=== PATIENT | female | born 1940 | race Caucasian/White ===

== ENCOUNTER 2020-02-11 09:16 | Outpatient (REF) | payer MEDICARE, SELFPAY ==
[2020-02-11 10:42] LABS: Hematocrit 34.9 % (37-47); Hemoglobin 9.5 g/dl (12.0-16.0)
[2020-02-11 12:14] LABS: Ferritin < 1 ng/mL (10-250)
[2020-02-11 18:45] LABS: Iron 19 mcg/dL (30-160); Percent Iron Saturation 4 % (15-50); Total Iron Binding Capacity 454 mcg/dL (228-428); Unsaturated Iron Binding 435 ug/dL
== END 2020-02-11 09:17 | disposition home or self-care (01) ==
LOC: HO.WFDLDS 09:16
PROVIDERS: PCP Family Medicine; Visit Provider Family Medicine
DX: D50.9 Iron deficiency anemia, unspecified (principal)
CPT/HCPCS: 36415; 82728; 83540; 85014; 85018

== ENCOUNTER 2020-05-31 08:24 | Outpatient (REF) | payer MEDICARE, SELFPAY ==
[2020-05-31 10:44] LABS: MANUAL DIFF FLAG NO
[2020-05-31 10:47] LABS: Basophils Absolute Auto 0.1 X10*3/uL (0.0-0.2); Basophils Percent Auto 1.4 % (0-2); Eosinophils Absolute Auto 0.1 X10*3/uL (0.0-0.4); Eosinophils Percent Auto 2.3 % (0-4); Hematocrit 35.3 % (37-47); Hemoglobin 9.4 g/dl (12.0-16.0); Imm Gran Abs Auto 0.01 X10*3/uL (0.00-0.03); Imm Gran Pct Auto 0.3 % (0.0-0.4); Lymphocytes Absolute Auto 0.9 X10*3/uL (1.2-4.9); Lymphocytes Percent Auto 26.5 % (20-40); Mean Corpuscular HGB Conc 26.6 g/dl (31.0-35.0); Mean Corpuscular Hemoglobin 19.9 pg (27.0-33.0); Mean Corpuscular Volume 74.6 fL (80-98); Mean Platelet Volume 10.4 fL (9.4-12.3); Monocytes Absolute Auto 0.5 X10*3/uL (0.1-1.2); Neutrophils Percent Auto 56.5 % (45-73); Platelet Count 389 X10*3/uL (160-400); Red Blood Count 4.73 X10*6/uL (4.20-5.50); Red Cell Distribution Width 20.6 % (11.0-16.0); White Blood Count 3.6 X10*3/uL (4.8-10.8)
[2020-05-31 11:41] LABS: Alanine Aminotransferase 13 U/L (0-31); Albumin Level 4.4 g/dL (3.5-5.0); Alkaline Phosphatase 57 U/L (39-117); Anion Gap 15 (12-20); Aspartate Amino Transferase 19 U/L (5-31); Bilirubin Total 0.5 mg/dL (0.0-1.0); Blood Urea Nitrogen 11 mg/dL (9-16); Calcium 9.2 mg/dL (8.4-10.2); Carbon Dioxide 27 mmol/L (22-29); Chloride 103 mmol/L (96-108); Cholesterol 206 mg/dL; Estimated Glomerular Filt Rate > 60; Glucose Fasting 104 mg/dL (60-99); HDL Cholesterol 76 mg/dL; Iron 19 mcg/dL (30-160); LDL Cholesterol Calculated 102 mg/dl; Percent Iron Saturation 4 % (15-50); Sodium 141 mmol/L (135-145); Total Iron Binding Capacity 463 mcg/dL (228-428); Total Protein 6.8 g/dL (6.5-8.0); Triglycerides 142 mg/dL; Unsaturated Iron Binding 444 ug/dL
[2020-05-31 12:04] LABS: TSH reflex Free T4 1.32 mIU/mL (0.32-4.0)
== END 2020-05-31 08:25 | disposition home or self-care (01) ==
LOC: HO.WFDLDS 08:24
PROVIDERS: Visit Provider Family Medicine
DX: Z00.00 Encounter for general adult medical examination without abnormal findings (principal); Z86.2 Personal history of diseases of the blood and blood-forming organs and certain disorders involving the immune mechanism; E78.5 Hyperlipidemia, unspecified
CPT/HCPCS: 36415; 80053; 80061; 83540; 84443; 85025

== ENCOUNTER 2021-02-06 12:59 | Outpatient (REF) | payer MEDICARE, SELFPAY ==
--- NOTE | ~2021-02-06 | MM_ITS ---
EXAMINATION: MM SCREENING DIGITAL BREAST TOMOSYNTHESIS, BILATERAL CLINICAL INFORMATION: Screening. Asymptomatic. The lifetime risk of breast cancer based on the Tyrer-Cuzick Model is 3%. COMPARISON: Mammography: 11/03/2019, 08/05/2018, 07/11/2017 TECHNIQUE: Digital breast tomosynthesis is performed in both the craniocaudal and mediolateral oblique views along with computer-aided detection (CAD). Synthesized 2D images are generated from the tomosynthesis. FINDINGS: There are scattered areas of fibroglandular density (ACR BI-RADS breast composition Category b). There are no significant masses, abnormal calcifications, or other abnormalities. Axillary nodes are stable including low right node on MLO view. The skin contours are smooth. No significant changes. MM/MM tomosynthesis screening BI IMPRESSION: No mammographic evidence of malignancy. ASSESSMENT: BI-RADS 1: Negative RECOMMENDATION: Routine annual mammography screening. This patient's information was entered into a reminder system with a target due date for their next mammogram.
== END 2021-02-06 13:00 | disposition home or self-care (01) ==
LOC: HO.MAMMO 12:59
PROVIDERS: PCP Family Medicine; Visit Provider Family Medicine
DX: Z12.31 Encounter for screening mammogram for malignant neoplasm of breast (principal)
CPT/HCPCS: 77063; 77067

== ENCOUNTER 2021-07-12 09:06 | Outpatient (REF) | payer MEDICARE, SELFPAY ==
[2021-07-12 10:22] LABS: MANUAL DIFF FLAG NO
[2021-07-12 10:32] LABS: Basophils Percent Auto 0.6 % (0-2); Eosinophils Absolute Auto 0.1 X10*3/uL (0.0-0.4); Eosinophils Percent Auto 1.9 % (0-4); Hematocrit 40.3 % (37.0-47.0); Hemoglobin 11.5 g/dl (12.0-16.0); Imm Gran Abs Auto 0.01 X10*3/uL (0.00-0.03); Imm Gran Pct Auto 0.2 % (0.0-0.4); Mean Corpuscular HGB Conc 28.5 g/dl (31.0-35.0); Mean Corpuscular Hemoglobin 22.4 pg (27.0-33.0); Mean Corpuscular Volume 78.4 fL (80.0-98.0); Mean Platelet Volume 10.6 fL (9.4-12.3); Monocytes Absolute Auto 0.4 X10*3/uL (0.1-1.2); Monocytes Percent Auto 9.5 % (2-11); Neutrophils Percent Auto 65.8 % (45-73); Platelet Count 311 X10*3/uL (160-400); Red Blood Count 5.14 X10*6/uL (4.20-5.50); Red Cell Distribution Width 19.6 % (11.0-16.0); White Blood Count 4.6 X10*3/uL (4.8-10.8)
[2021-07-12 10:45] LABS: Alanine Aminotransferase 12 U/L (0-31); Albumin Level 4.3 g/dL (3.5-5.0); Alkaline Phosphatase 69 U/L (39-117); Anion Gap 13 (12-20); Aspartate Amino Transferase 18 U/L (5-31); Bilirubin Total 0.5 mg/dL (0.0-1.0); Blood Urea Nitrogen 16 mg/dL (9-16); Calcium 9.4 mg/dL (8.4-10.2); Carbon Dioxide 28 mmol/L (22-29); Chloride 104 mmol/L (96-108); Cholesterol 202 mg/dL; Estimated Glomerular Filt Rate > 60; Glucose Fasting 108 mg/dL (60-99); HDL Cholesterol 76 mg/dL; LDL Cholesterol Calculated 98 mg/dl; Potassium 3.4 mmol/L (3.3-5.1); Sodium 142 mmol/L (135-145); Triglycerides 141 mg/dL
[2021-07-12 11:06] LABS: TSH reflex Free T4 1.14 uIU/mL (0.32-4.0)
== END 2021-07-12 09:07 | disposition home or self-care (01) ==
LOC: HO.WFDLDS 09:06
PROVIDERS: Visit Provider Family Medicine
DX: Z00.00 Encounter for general adult medical examination without abnormal findings (principal)
CPT/HCPCS: 36415; 80053; 80061; 84443; 85025

== ENCOUNTER 2022-01-16 10:37 | Outpatient (REF) | payer MEDICARE, SELFPAY ==
--- NOTE | ~2022-01-16 | MM_ITS ---
EXAMINATION: BONE DENSITOMETRY CLINICAL INDICATION: Osteopenia. COMPARISON: Previous BD dated 01/15/2020 and baseline BD dated 08/30/2006. TECHNIQUE: Using a [employer] DXA System (software version: 13.1) manufactured by [employer], dual-energy x-ray absorptiometry was performed of the lumbar spine and left hip. The images are of good technical quality. Summary results are attached. FINDINGS: AP SPINE L1-L3 (excluding L4): The data of L1-L4 has been changed to exclude the L4 vertebral body, because degenerative changes at this level may cause overestimation of lumbar spine density. Current: BMD 1.085 g/cm2, Z-score 0.9, T-score -0.7, normal, 0.7% decrease from previous, 2.6% decrease from baseline (<5% change is not significant). Prior: BMD 1.093 g/cm2. Baseline: BMD 1.114 g/cm2. LEFT FEMUR, NECK: Current: BMD 0.589 g/cm2, Z-score -1.3, T-score -3.2, osteoporosis. Prior: BMD 0.662 g/cm2. Baseline: BMD 0.860 g/cm2. LEFT FEMUR, TOTAL: Current: BMD 0.711 g/cm2, Z-score -0.5, T-score -2.4, osteopenia, 1.5% decrease from previous, 32.1% decrease from baseline (<5% change is not significant). Prior: BMD 0.722 g/cm2. Baseline: BMD 1.047 g/cm2. IDENTIFIED RISK FACTORS: Early menopause, secondary osteoporosis, Thiazide. HISTORY OF FRACTURE: None listed. MEDICATIONS: None listed. MM/XR DEXA axial skeleton IMPRESSION: 1. DIAGNOSIS: Osteoporosis based on the lowest T-score value of -3.2 in the femoral neck applying World Health Organization criteria. 2. 10-YEAR FRACTURE RISK PREDICTION, FRAX: According to the guidelines, FRAX calculation should only be performed on patients in the osteopenia bone density category. Therefore, FRAX was not performed on this patient. 3. Treatment Recommendations: NOF guidelines recommend consideration for treatment in postmenopausal women and men age 50 and older presenting with the following: -A hip or vertebral (clinical or morphometric) fracture. -T-score less than or equal to -2.5 at the femoral neck or spine after appropriate evaluation to exclude secondary causes. -Low bone mass at the hip or spine and a 10-year fracture probability by FRAX of greater than or equal to 3% for hip fracture or greater than or equal to 20% for major osteoporotic fracture based on the [place] adapted WHO algorithm. 4. Other Recommendations: All treatment decisions require clinical judgment and consideration of individual patient factors, including patient preferences, comorbidities, previous drug use, risk factors not captured in the FRAX model (e.g. frailty, falls, vitamin D deficiency, increased bone turnover, interval significant decline in bone density) and possible under or overestimation of fracture risk by FRAX. Additional medical evaluation for secondary cause of low bone mineral density may be appropriate. FUTURE SCAN RECOMMENDATION: People with diagnosed cases of osteoporosis or at high risk for fracture should have regular bone mineral density tests. For patients eligible for Medicare, routine testing is allowed once every 2 years. The testing frequency can be increased to one year for patients who have rapidly progressing disease, those who are receiving or discontinuing medical therapy to restore bone mass, or have additional risk factors.
== END 2022-01-16 10:38 | disposition home or self-care (01) ==
LOC: HO.MAMMO 10:37
PROVIDERS: Visit Provider Family Medicine
DX: Z13.820 Encounter for screening for osteoporosis (principal); M85.88 Other specified disorders of bone density and structure, other site; Z78.0 Asymptomatic menopausal state
CPT/HCPCS: 77080

== ENCOUNTER 2022-03-15 12:39 | Outpatient (REF) | payer MEDICARE, SELFPAY ==
--- NOTE | ~2022-03-15 | MM_ITS ---
EXAMINATION: MM SCREENING DIGITAL BREAST TOMOSYNTHESIS, BILATERAL CLINICAL INFORMATION: Screening. Asymptomatic. COMPARISON: Mammography: 02/06/2021, 11/03/2019, 08/05/2018 TECHNIQUE: Digital breast tomosynthesis is performed in both the craniocaudal and mediolateral oblique views along with computer-aided detection (CAD). Synthesized 2D images are generated from the tomosynthesis. FINDINGS: There are scattered areas of fibroglandular density (ACR BI-RADS breast composition Category b). There are no significant masses, abnormal calcifications, or other abnormalities. Parenchymal pattern is similar to prior studies. There is no developing density or architectural abnormality. The axilla and skin contours are unremarkable. No significant changes. MM/MM tomosynthesis screening BI IMPRESSION: No mammographic evidence of malignancy. ASSESSMENT: BI-RADS 1: Negative RECOMMENDATION: Routine annual mammography screening. This patient's information was entered into a reminder system with a target due date for their next mammogram.
== END 2022-03-15 12:40 | disposition home or self-care (01) ==
LOC: HO.MAMMO 12:39
PROVIDERS: PCP Family Medicine; Visit Provider Family Medicine
DX: Z12.31 Encounter for screening mammogram for malignant neoplasm of breast (principal)
CPT/HCPCS: 77063; 77067

== ENCOUNTER → 2022-04-10 14:08 | Outpatient (BNVA) | payer MEDICARE, SELFPAY | PROVIDERS: PCP Family Medicine; Visit Provider Student in an Organized Health Care Education/Training Program | DX: M81.0 Age-related osteoporosis without current pathological fracture (principal); M19.041 Primary osteoarthritis, right hand; M19.042 Primary osteoarthritis, left hand | CPT/HCPCS: 99202 ==

== ENCOUNTER 2022-05-22 12:06 | Outpatient (REF) | payer MEDICARE, SELFPAY ==
[2022-05-22 14:28] LABS: Hematocrit 46.2 % (37.0-47.0); Hemoglobin 14.1 g/dl (12.0-16.0); Mean Corpuscular HGB Conc 30.5 g/dl (31.0-35.0); Mean Corpuscular Hemoglobin 28.1 pg (27.0-33.0); Mean Platelet Volume 10.4 fL (9.4-12.3); Platelet Count 276 X10*3/uL (160-400); Red Blood Count 5.02 X10*6/uL (4.20-5.50); Red Cell Distribution Width 15.9 % (11.0-16.0); White Blood Count 4.3 X10*3/uL (4.8-10.8)
[2022-05-22 15:27] LABS: Alanine Aminotransferase 15 U/L (0-31); Albumin Level 4.5 g/dL (3.5-5.0); Alkaline Phosphatase 72 U/L (39-117); Anion Gap 13 (12-20); Aspartate Amino Transferase 18 U/L (5-31); Bilirubin Total 0.6 mg/dL (0.0-1.0); Blood Urea Nitrogen 14 mg/dL (9-16); Calcium 9.8 mg/dL (8.4-10.2); Carbon Dioxide 27 mmol/L (22-29); Chloride 105 mmol/L (96-108); Estimated Glomerular Filt Rate > 60; Glucose Random 108 mg/dL (60-115); Potassium 3.8 mmol/L (3.3-5.1); Sodium 141 mmol/L (135-145); Total Protein 7.2 g/dL (6.5-8.0)
[2022-05-22 16:23] LABS: Band Neutrophils Percent 0 % (3-5); Basophils Abs Manual 0.1 X10*3/uL (0.0-0.2); Basophils Percent Manual 2 % (0-2); Lymphocytes Absolute Manual 0.8 X10*3/uL (1.2-4.9); Lymphocytes Percent Manual 18 % (20-40); Monocytes Absolute Manual 0.3 X10*3/uL (0.1-1.2); Monocytes Percent Manual 7 % (2-11); Neutrophils Absolute Manual 3.1 X10*3/uL (2.0-8.3); Neutrophils Percent Manual 73 % (45-73); RBC Morphology NORMAL
[2022-05-22 16:24] LABS: Platelet Estimate NORMAL (NORMAL); Platelet Morphology Comment NORMAL
== END 2022-05-22 12:07 | disposition home or self-care (01) ==
LOC: HO.WFDLDS 12:06
PROVIDERS: Visit Provider Student in an Organized Health Care Education/Training Program
DX: Z00.00 Encounter for general adult medical examination without abnormal findings (principal); M81.0 Age-related osteoporosis without current pathological fracture; I10 Essential (primary) hypertension
CPT/HCPCS: 36415; 80053; 85007; 85027

== ENCOUNTER 2022-11-02 08:43 | Outpatient (REF) | payer MEDICARE, SELFPAY ==
[2022-11-02 11:18] LABS: MANUAL DIFF FLAG NO
[2022-11-02 11:36] LABS: Basophils Percent Auto 0.9 % (0-2); Eosinophils Absolute Auto 0.1 X10*3/uL (0.0-0.4); Hematocrit 45.6 % (37.0-47.0); Hemoglobin 14.9 g/dl (12.0-16.0); Imm Gran Abs Auto 0.05 X10*3/uL (0.00-0.03); Imm Gran Pct Auto 1.1 % (0.0-0.4); Lymphocytes Percent Auto 21.5 % (20-40); Mean Corpuscular HGB Conc 32.7 g/dl (31.0-35.0); Mean Corpuscular Hemoglobin 32.3 pg (27.0-33.0); Mean Corpuscular Volume 98.7 fL (80.0-98.0); Mean Platelet Volume 11.1 fL (9.4-12.3); Monocytes Absolute Auto 0.4 X10*3/uL (0.1-1.2); Monocytes Percent Auto 9.3 % (2-11); Neutrophils Percent Auto 65.2 % (45-73); Platelet Count 222 X10*3/uL (160-400); Red Blood Count 4.62 X10*6/uL (4.20-5.50); Red Cell Distribution Width 13.9 % (11.0-16.0); White Blood Count 4.6 X10*3/uL (4.8-10.8)
[2022-11-02 12:30] LABS: Alanine Aminotransferase 15 U/L (0-31); Albumin Level 4.3 g/dL (3.5-5.0); Alkaline Phosphatase 50 U/L (39-117); Anion Gap 17 (12-20); Aspartate Amino Transferase 20 U/L (5-31); Bilirubin Total 0.6 mg/dL (0.0-1.0); Blood Urea Nitrogen 20 mg/dL (9-16); Calcium 9.2 mg/dL (8.4-10.2); Carbon Dioxide 27 mmol/L (22-29); Chloride 102 mmol/L (96-108); Cholesterol 220 mg/dL; Estimated Glomerular Filt Rate > 60; Glucose Fasting 95 mg/dL (60-99); HDL Cholesterol 70 mg/dL; LDL Cholesterol Calculated 115 mg/dl; Potassium 3.5 mmol/L (3.3-5.1); Sodium 142 mmol/L (135-145); Total Protein 7.1 g/dL (6.5-8.0); Triglycerides 176 mg/dL
[2022-11-02 13:05] LABS: TSH reflex Free T4 1.75 uIU/mL (0.32-4.0)
== END 2022-11-02 08:44 | disposition home or self-care (01) ==
LOC: HO.WFDLDS 08:43
PROVIDERS: Visit Provider Family Medicine
DX: Z00.00 Encounter for general adult medical examination without abnormal findings (principal)
CPT/HCPCS: 36415; 80053; 80061; 84443; 85025

== ENCOUNTER 2022-12-31 11:30 | Outpatient (AMB) | payer MEDICARE, SELFPAY ==
--- NOTE | 2022-12-31 11:36 | MHC.PC.OV ---
Vital Signs 12/31/22 11:37 12/31/22 12:11 Height 5 ft 2 in Weight 161 lb 8 oz BMI 29.5 BP 140/72 H 132/64 Blood Pressure Location Lt brachial Rt brachial Position Sitting Sitting Pulse 71 Pulse Source Pulse Oximeter Pulse Oximetry (%) 96 Oxygen Delivery Method Room Air Intake Visit Reasons: f/u hypertension Intake Note: Patient is here to follow up on hypertension today. Allergies Seasonal Allergies Allergy (Intermediate, Verified 12/31/22 11:41) sneezing atorvastatin [Lipitor] Adverse Reaction (Severe, Verified 12/31/22 11:41) myopathy Tobacco use date assessed: 12/31/22 Fall risk assessment: 1 Fall in past year Last assessed Fall Risk: 12/31/22 Dental Screening Dental Screen Date: 12/31/22 Did you have a dental visit in the last 12 months?: Yes Did you have a dental problem in the last 6 months where you did not have access to dental care?: No Was dental information given to patient?: Patient has dentist HPI f/u hypertension HPI Details 82 y/o female presents to f/u hypertension. Blood pressure was significantly elevated at initial presentation and improves with relaxation. However she never has low blood pressures and always either controlled or high. I have given her an increase in her hydrochlorothiazide to b.i.d. dosing. Blood pressure today 140/72. Hydrochlorothiazide b.i.d. dosing had not been received by the pharmacy. She is on HCTZ 25mg daily. [facility] Medical History Crohn disease Hypertension Lipoma of chest wall Surgical History H/O adenoidectomy History of lipoma History of tonsillectomy Family History Father Hodgkins lymphoma Mother COPD (chronic obstructive pulmonary disease) Daughter PSA (psoriatic arthritis) Paternal Grandfather No problems noted. Social History Housing: House Alcohol intake: never Patient Tobacco Use Status: Never used Tobacco e-Cigarette/Vaping Use: Never Used Second Hand Smoke Exposure: No service: No Current occupational status: retired Current occupation: Retired RN Current occupational exposures/hazards: No Cognitive needs: No Hearing needs: No Vision needs: No Questionnaire Thrive Questionnaire Date Thrive assessed: 05/22/22 CYRIL-7 AMB Questionnaire CYRIL-7 Date CYRIL - 7 assessed: 05/22/22 Source: Developed by Drs. Giovanni Oneil, Chen Duron, Philippe Vazquez and colleagues, with an educational buddy from [employer]. Review of Systems Const Denies chills, Denies fatigue, Denies fever(s), Denies headache(s) and Denies weakness ENT Denies dizziness and Denies headache(s) Card Denies chest pain, Denies lightheadedness, Denies dyspnea and Denies other (Palpitations) Resp Denies cough, Denies dyspnea, Denies wheezing and Denies other ( shortness of breath) Musc Denies numbness and Denies tingling Neuro Denies dizziness, Denies headache(s), Denies numbness, Denies tingling, Denies paresthesias and Denies weakness Psych Denies anxiety and Denies depression Endo Denies fatigue Aller/Immun Denies wheezing Physical exam (Primary Care) Vital Signs: Last Vital Signs Pulse 71 12/31/22 11:37 BP 140/72 H 12/31/22 11:37 Pulse Ox 96 12/31/22 11:37 Oxygen Delivery Method Room Air 12/31/22 11:37 BMI result Body Mass Index 29.5 Tobacco/Smoking Status: Tobacco use Status Tobacco use date assessed 12/31/22 12/31/22 11:48 Patient Tobacco Use Status Never used Tobacco 12/31/22 11:48 e-Cigarette/Vaping Use Never Used 12/31/22 11:48 Thrive Assessment: Date of Thrive Assessment Date Thrive assessed 05/22/22 12/31/22 11:48 Const General: no acute distress and well developed Nutritional Appearance: well nourished Orientation/consciousness: patient oriented x3 HENMT Head: Yes normocephalic and Yes atraumatic Eyes General: appearance normal, both eyes and all related structures Pupils: Equal, round and reactive pupils present EOM: EOMs intact bilaterally Resp Effort & Inspection: normal respiratory effort Auscultation: clear to auscultation bilaterally Cardio Rate: regular rate Rhythm: abnormal rhythm and abnormal rhythm regularly irregular (Heart rate frequent premature atrial contractions ) Heart sounds: S1 normal heart sound present, S2 normal heart sound present, no gallops, no murmurs and no rubs Neuro General: patient oriented x3 and gait normal Cranial nerves: Yes Equal, round and reactive pupils present Psych Affect: normal affect Assessment and Plan Assessment & Plan (1) Essential hypertension: Code(s): I10 - Essential (primary) hypertension Plan: Blood pressure is high at initial presentation. Improves to controlled range with relaxation. Had asked patient to trial taking her blood pressure medication b.i.d. and keeping a log of her pressures. Patient did trial increase in medication as she is concerned that it will increase her urine output. She did not keep a log of her blood pressures. (2) Hyperlipidemia: Code(s): E78.5 - Hyperlipidemia, unspecified Plan: Triglycerides are elevated Encouraged a diet lower in saturated fats and cholesterol Encouraged weight control (3) Abnormal heart rhythm: Code(s): I49.9 - Cardiac arrhythmia, unspecified Plan: Patient has frequent PACs No dizziness or shortness of breath Coding Level of Care Code Est Pt Level 3 (45948) Diagnoses Essential hypertension I10 Hyperlipidemia E78.5 Abnormal heart rhythm I49.9
[2022-12-31 11:37] VITALS: BP 140/72; PULSE 71; O2SAT 96; BMI 29.5
[2022-12-31 12:11] VITALS: BP 132/64
== END 2022-12-31 12:21 | disposition home or self-care (01) ==
PROVIDERS: PCP Family Medicine; Visit Provider Family Medicine
DX: I10 Essential (primary) hypertension (principal); E78.5 Hyperlipidemia, unspecified; I49.9 Cardiac arrhythmia, unspecified
CPT/HCPCS: 99213

== ENCOUNTER 2023-01-09 09:30 | Outpatient (AMB) | payer MEDICARE, SELFPAY ==
[2023-01-09 09:42] VITALS: BP 126/64; PULSE 99; TEMP 36.4; O2SAT 96; BMI 29.1
--- NOTE | 2023-01-09 09:42 | MHC.OFFVIS ---
Intake Vital Signs 01/09/23 09:42 Height 5 ft 2 in Weight 159 lb 2.78 oz BMI 29.1 BP 126/64 Blood Pressure Location Rt brachial Position Sitting Pulse 99 Pulse Source Pulse Oximeter Temp 97.6 F Temp Source Skin Pulse Oximetry (%) 96 Intake Visit Reasons: OA Intake Note: Pt seen today for OA follow up. Denies new or increased pain, Requesting refill for alendronate Communications Consultant Required: No Accompanied by: Self / Same As Patient Allergies Seasonal Allergies Allergy (Intermediate, Verified 01/09/23 09:48) sneezing atorvastatin [Lipitor] Adverse Reaction (Severe, Verified 01/09/23 09:48) myopathy Medication List - Last Reconciled 01/09/23 by Adan Torres MD alendronate 70 mg PO QWEEK blood pressure test kit-large check bp daily clotrimazole-betamethasone 1-0.05 % 1 appl topical BID flu vacc [id number](65yr up)-PF mL IM hydrochlorothiazide 25 mg PO DAILY ibuprofen (Advil) 400 mg PO Q8H pravastatin 5 mg (1/2 x 10 mg) PO DAILY sulfasalazine 1,000 mg (2 x 500 mg) PO BID 30 days varicella-zoster [id number] (PF) 50 mcg/0.5 mL IM HPI HPI Comments History of Present Illness Details 82-year-old female with generalized osteoarthritis and osteoporosis returns for follow-up. Feeling about the same overall. Has any side effects related to Fosamax. Continues to get intermittent pain in her thumbs. Initial history: This is an 82-year-old female with past medical history of hypertension, Crohn's colitis, osteoporosis and generalized osteoarthritis who presents for evaluation of bilateral hand pain. Patient has had bilateral hand osteoarthritis for years now the majority of the pain is in her thumbs. Pain is worse in winter time and when it is raining. She sometimes has difficulty grabbing objects. 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 She takes Advil 400 mg almost every day for pain which does provide some moderate relief. Celebrex gave her side effects. She also uses an anesthetic cream. She also complains that her neck cracks but she has no neck pain or reduced mobility. She was also diagnosed with osteoporosis about 5 years ago and was on Fosamax for a few months but stopped it due to joint and muscle pain. [facility] Medical History Crohn disease Hypertension Lipoma of chest wall Surgical History H/O adenoidectomy History of lipoma History of tonsillectomy Family History Father Hodgkins lymphoma Mother COPD (chronic obstructive pulmonary disease) Daughter PSA (psoriatic arthritis) Paternal Grandfather No problems noted. Social History Housing: House Alcohol intake: never Patient Tobacco Use Status: Never used Tobacco e-Cigarette/Vaping Use: Never Used Second Hand Smoke Exposure: No service: No Current occupational status: retired Current occupation: Retired RN Current occupational exposures/hazards: No Cognitive needs: No Hearing needs: No Vision needs: No Review of Systems GI Details: Intermittent flares of Crohn's colitis with diarrhea Musc Reports arthralgias Physical Exam Vital Signs: Last Vital Signs Temp 97.6 F 01/09/23 09:42 Pulse 99 01/09/23 09:42 BP 126/64 01/09/23 09:42 Pulse Ox 96 01/09/23 09:42 BMI result Body Mass Index 29.1 Const General: cooperative, healthy appearing, comfortable and no acute distress Nutritional Appearance: overweight Orientation/consciousness: patient oriented x3 Limitations: no limitations HEENT Head: Yes normocephalic and Yes atraumatic Mouth: moist mucous membranes Resp Effort & Inspection: normal respiratory effort and able to speak in complete sentences Neuro General: patient oriented x3 Extrem Other: Osteoarthritic changes of her hands with no synovitis. Bilateral grind test positive with crepitus Bijan's and Heberden's nodes Assessment & Plan Assessment & Plan (1) Osteoarthritis of hands, bilateral: Code(s): M19.041 - Primary osteoarthritis, right hand; M19.042 - Primary osteoarthritis, left hand Qualifiers: Osteoarthritis type: primary Qualified Code(s): M19.041 - Primary osteoarthritis, right hand; M19.042 - Primary osteoarthritis, left hand Plan: This is an 82-year-old female with bilateral hand osteoarthritis who returns for follow-up. Doing about the same overall. She takes Advil almost daily. Advised patient to try to use as much Tylenol Arthritis and avoid Advil use. Start using Voltaren gel for affected painful areas on her thumbs. She has history of Crohn's colitis on sulfasalazine. (2) Osteoporosis: Code(s): M81.0 - Age-related osteoporosis without current pathological fracture Qualifiers: Osteoporosis type: age-related Presence of current pathological fracture: without current pathological fracture Qualified Code(s): M81.0 - Age-related osteoporosis without current pathological fracture Plan: DEXA 01/2022 showed T-score-3.2 left hip. Tolerating Fosamax which was started 03/2022 Continue Fosamax 70 mg weekly. Repeat DEXA 01/2024 Plan I spent 26 minutes reviewing patient's chart, evaluating patient, ordering diagnostic workup, counseling patient and documenting in the chart Orders: Orders XR DEXA axial skeleton 01/09/24 M81.0 - Age-related osteoporosis without current pathological fracture Medications: Refilled alendronate 70 mg PO QWEEK 12 tabs 3RF Coding Level of Care Code Est Pt Level 4 (47296) Diagnoses Osteoarthritis of hands, bilateral M19.041; M19.042 Osteoarthritis type: primary Osteoporosis M81.0 Osteoporosis type: age-related Presence of current pathological fracture: without current pathological fracture
== END 2023-01-09 10:02 | disposition home or self-care (01) ==
PROVIDERS: PCP Family Medicine; Visit Provider Student in an Organized Health Care Education/Training Program
DX: M19.041 Primary osteoarthritis, right hand (principal); M19.042 Primary osteoarthritis, left hand; M81.0 Age-related osteoporosis without current pathological fracture
CPT/HCPCS: 99214

== ENCOUNTER → 2023-01-09 09:30 | Outpatient (BNVA) | payer MEDICARE, SELFPAY | PROVIDERS: PCP Family Medicine; Visit Provider Student in an Organized Health Care Education/Training Program | DX: M19.041 Primary osteoarthritis, right hand (principal); M19.042 Primary osteoarthritis, left hand; M81.0 Age-related osteoporosis without current pathological fracture | CPT/HCPCS: 99212 ==

== ENCOUNTER 2023-04-11 10:43 | Outpatient (AMB) | payer MEDICARE, SELFPAY ==
[2023-04-11 10:53] VITALS: BP 122/68; PULSE 85; O2SAT 97; BMI 29.9
--- NOTE | 2023-04-11 10:53 | A.OFFPC_ITS ---
Vital Signs 04/11/23 10:53 Height 5 ft 2 in Weight 163 lb 4 oz BMI 29.9 BP 122/68 Blood Pressure Location Lt brachial Position Sitting Pulse 85 Pulse Source Pulse Oximeter Pulse Oximetry (%) 97 Oxygen Delivery Method Room Air Intake Visit Reasons: f/u hypertension Intake Note: Patient is here to follow up on hypertension. Patient would like a flu shot today. Allergies Seasonal Allergies Allergy (Intermediate, Verified 04/11/23 10:56) sneezing atorvastatin [Lipitor] Adverse Reaction (Severe, Verified 04/11/23 10:56) myopathy Tobacco use date assessed: 04/11/23 HPI f/u hypertension HPI Details 83 y/o female presents to f/u hypertensi on. Blood pressure today 122/68. She reports she brought a blood pressure log from her home and numbers have been controlled as well. She is on hydrochlorothiazide 25mg daily. HPI Comments History of Present Illness Details Documentation assistance for Constantino Wise MD, was provided by Chas Li,? Classroom Instructor on 04/11/2023 11:21 AM EST. I, Dr. Wise, have read, observed, and verified documentation. [facility] Medical History Crohn disease Hypertension Lipoma of chest wall Surgical History H/O adenoidectomy History of lipoma History of tonsillectomy Family History Father Hodgkins lymphoma Mother COPD (chronic obstructive pulmonary disease) Daughter PSA (psoriatic arthritis) Paternal Grandfather No problems noted. Social History Housing: House Alcohol intake: never Patient Tobacco Use Status: Never used Tobacco e-Cigarette/Vaping Use: Never Used Second Hand Smoke Exposure: No service: No Current occupational status: retired Current occupation: Retired RN Current occupational exposures/hazards: No Cognitive needs: No Hearing needs: No Vision needs: No Questionnaire Thrive Questionnaire Date Thrive assessed: 05/22/22 CYRIL-7 AMB Questionnaire CYRIL-7 Date CYRIL - 7 assessed: 05/22/22 Source: Developed by Drs. Giovanni L. ClariceChen hancock, Philippe Vazquez and colleagues, with an educational buddy from [employer]. Review of Systems Const Denies chills, Denies fatigue, Denies fever(s), Denies headache(s) and Denies weakness ENT Denies dizziness and Denies headache(s) Card Denies dyspnea Resp Denies cough, Denies dyspnea, Denies wheezing and Denies other (shortness of breath) Musc Denies numbness and Denies tingling Neuro Denies dizziness, Denies headache(s), Denies numbness, Denies tingling and Denies weakness Psych Denies anxiety and Denies depression Endo Denies fatigue Aller/Immun Denies wheezing Physical exam (Primary Care) Vital Signs: Last Vital Signs Pulse 85 04/11/23 10:53 BP 122/68 04/11/23 10:53 Pulse Ox 97 04/11/23 10:53 Oxygen Delivery Method Room Air 04/11/23 10:53 BMI result Body Mass Index 29.9 Tobacco/Smoking Status: Tobacco use Status Tobacco use date assessed 04/11/23 04/11/23 10:57 Patient Tobacco Use Status Never used Tobacco 04/11/23 10:55 e-Cigarette/Vaping Use Never Used 04/11/23 10:55 Thrive Assessment: Date of Thrive Assessment Date Thrive assessed 05/22/22 04/11/23 10:55 Const General: well developed; No acute distress Nutritional Appearance: well nourished Orientation/consciousness: patient oriented x3 HENMT Head: Yes normocephalic and Yes atraumatic Eyes General: appearance normal, both eyes and all related structures Pupils: Equal, round and reactive pupils present EOM: EOMs intact bilaterally Resp Effort & Inspection: normal respiratory effort Auscultation: clear to auscultation bilaterally Cardio Rate: regular rate Rhythm: regular rhythm Heart sounds: S1 normal heart sound present, S2 normal heart sound present, no gallops, no murmurs and no rubs Neuro General: patient oriented x3 and gait normal Cranial nerves: Yes Equal, round and reactive pupils present Psych Affect: normal affect Assessment and Plan Assessment & Plan (1) Essential hypertension: Code(s): I10 - Essential (primary) hypertension Plan: Blood?pressure?today?and?by?her?logs?at?home?show?good ?control.??Goal?is?less?than?140/90 Continue?current?medication?regimen (2) Immunization counseling: Code(s): Z71.85 - Encounter for immunization safety counseling Plan: Patient?would?like?flu?shot. We?discussed??recommendations?regarding?high-dose?flu?shot?and?patient?is?over?6 5?but?she?would?like?to?get?a?flu?shot?here. Ordered Orders: Orders Influenza [id number] Immunization Today Z23 - Encounter for immunization Medications: New flu vacc [id number] 6mos up(PF) 0.5 mL IM ONCE 0.5 mL 0RF Z23 - Encounter for immunization Coding Level of Care Code Est Pt Level 3 (64342) Diagnoses Essential hypertension I10 Immunization counseling Z71.85
== END 2023-04-11 11:55 | disposition home or self-care (01) ==
PROVIDERS: PCP Family Medicine; Visit Provider Family Medicine
DX: I10 Essential (primary) hypertension (principal); Z71.85 Encounter for immunization safety counseling; Z23 Encounter for immunization
CPT/HCPCS: 90471; 90686; 99213

== ENCOUNTER 2023-04-15 13:24 | Outpatient (REF) | payer MEDICARE, SELFPAY | END 2023-04-15 13:25 | disposition home or self-care (01) | LOC: HO.MAMMO 13:24 | PROVIDERS: PCP Family Medicine; Visit Provider Family Medicine | DX: Z12.31 Encounter for screening mammogram for malignant neoplasm of breast (principal) | CPT/HCPCS: 77063; 77067 ==

== ENCOUNTER → 2023-04-15 13:45 | Outpatient (BNV) | payer MEDICARE, SELFPAY | PROVIDERS: PCP Family Medicine; Visit Provider Radiology Diagnostic Radiology | DX: Z12.31 Encounter for screening mammogram for malignant neoplasm of breast (principal) | CPT/HCPCS: 77063; 77067 ==

== ENCOUNTER 2023-09-11 14:30 | Outpatient (AMB) | payer MEDICARE, SELFPAY ==
[2023-09-11 14:34] VITALS: BP 140/70; PULSE 97; O2SAT 97; BMI 29.3
--- NOTE | 2023-09-11 14:34 | A.OFFPC_ITS ---
Vital Signs 09/11/23 14:34 Height 5 ft 2 in Weight 160 lb 4 oz BMI 29.3 BP 140/70 H Blood Pressure Location Lt brachial Position Sitting Pulse 97 Pulse Source Pulse Oximeter Pulse Oximetry (%) 97 Oxygen Delivery Method Room Air Intake Visit Reasons: f/u hypertension Intake Note: Patient is following up on her hypertension. Patient is concerned about going to PT for strentghening. Allergies Seasonal Allergies Allergy (Intermediate, Verified 09/11/23 14:41) sneezing atorvastatin [Lipitor] Adverse Reaction (Severe, Verified 09/11/23 14:41) myopathy Medication List - Last Reconciled 09/11/23 by Constantino Wise MD alendronate 70 mg PO QWEEK blood pressure test kit-large check bp daily clotrimazole-betamethasone 1-0.05 % 1 appl topical BID flu vacc [id number](65yr up)-PF mL IM hydrochlorothiazide 25 mg PO DAILY ibuprofen (Advil) 400 mg PO Q8H pravastatin 5 mg (1/2 x 10 mg) PO DAILY sulfasalazine 1,000 mg (2 x 500 mg) PO BID 30 days varicella-zoster [id number] (PF) 50 mcg/0.5 mL IM Tobacco use date assessed: 09/11/23 Fall risk assessment: 1 Fall in past year Last assessed Fall Risk: 09/11/23 Dental Screening Dental Screen Date: 12/31/22 HPI f/u hypertension HPI Details 83 y/o female presents to f/u hypertensi on. Blood pressure today elevated at 140/70. She is on hydrochlorothiazide 25mg daily. Pt reports some LE weakness and would like physical therapy for some balance training. HPI Comments History of Present Illness Details Documentation assistance for Constantino Wise MD, was provided by hCas Li,? Beam Dyer Recessed Vat on 09/11/2023 2:52 PM EST. I, Dr. Wise, have read, observed, and verified documentation. PFS Medical History Crohn disease Hypertension Lipoma of chest wall Surgical History H/O adenoidectomy History of lipoma History of tonsillectomy Family History Father Hodgkins lymphoma Mother COPD (chronic obstructive pulmonary disease) Daughter PSA (psoriatic arthritis) Paternal Grandfather No problems noted. Social History Housing: House Alcohol intake: never Patient Tobacco Use Status: Never used Tobacco e-Cigarette/Vaping Use: Never Used Second Hand Smoke Exposure: No service: No Current occupational status: retired Current occupation: Retired RN Current occupational exposures/hazards: No Cognitive needs: No Hearing needs: No Vision needs: No Questionnaire Thrive Questionnaire Date Thrive assessed: 05/22/22 CYRIL-7 AMB Questionnaire CYRIL-7 Date CYRIL - 7 assessed: 05/22/22 Source: Developed by Drs. Giovanni Oneil, Chen Duron, Philippe Vazquez and colleagues, with an educational buddy from [employer]. Review of Systems Const Denies chills, Denies fatigue, Denies fever(s), Denies headache(s) and Denies weakness ENT Denies dizziness and Denies headache(s) Card Denies dyspnea Resp Denies cough, Denies dyspnea, Denies wheezing and Denies other (shortness of b reath) Musc Denies numbness and Denies tingling Neuro Denies dizziness, Denies headache(s), Denies numbness, Denies tingling and Denies weakness Psych Denies anxiety and Denies depression Endo Denies fatigue Aller/Immun Denies wheezing Physical exam (Primary Care) Vital Signs: Last Vital Signs Pulse 97 09/11/23 14:34 BP 140/70 H 09/11/23 14:34 Pulse Ox 97 09/11/23 14:34 Oxygen Delivery Method Room Air 09/11/23 14:34 BMI result Body Mass Index 29.3 Tobacco/Smoking Status: Tobacco use Status Tobacco use date assessed 09/11/23 09/11/23 14:42 Patient Tobacco Use Status Never used Tobacco 09/11/23 14:37 e-Cigarette/Vaping Use Never Used 09/11/23 14:37 Thrive Assessment: Date of Thrive Assessment Date Thrive assessed 05/22/22 09/11/23 14:37 Const General: well developed; No acute distress Nutritional Appearance: well nourished Orientation/consciousness: patient oriented x3 HENMT Head: Yes normocephalic and Yes atraumatic Eyes General: appearance normal, both eyes and all related structures Pupils: Equal, round and reactive pupils present EOM: EOMs intact bilaterally Resp Effort & Inspection: normal respiratory effort Auscultation: clear to auscultation bilaterally Cardio Rate: regular rate Rhythm: regular rhythm Heart sounds: S1 normal heart sound present, S2 normal heart sound present, no gallops, no murmurs and no rubs Neuro General: patient oriented x3 and gait normal Cranial nerves: Yes Equal, round and reactive pupils present Psych Affect: normal affect Assessment and Plan Assessment & Plan (1) Essential hypertension: Code(s): I10 - Essential (primary) hypertension Plan: Blood?pressure?mildly?above?goal?of?less?than?140/90?today. She?does?have?a?history?of?white?coat?syndrome?and? log?of?her?blood?pressures?at?home?shows?better?controlled?and?in?the?office. Patient?agrees?to?a?prescription?of?hydrochlorothiazide?95?tabs?per?90?days?to?g ignacia?her?the?option?of?taking?an?additional ?tablet?if?her?blood?pressures?are?occasionally?high. She?will?let?me?know?if?consistently?elevated. Otherwise?no?change?to?current?medication?regimen (2) Breast cancer screening by mammogram: Code(s): Z12.31 - Encounter for screening mammogram for malignant neoplasm of breast Plan: Mammo gram?in?April?showed?no?evidence?of?malignancy?and?advise?continuing?annual?s creening Due?again?in?April. (3) Osteoporosis: Code(s): M81.0 - Age-related osteoporosis without current pathological fracture Qualifiers: Osteoporosis type: age-related Presence of current pathological fracture: without current pathological fracture Qualified Code(s): M81.0 - Age- related osteoporosis without current pathological fracture Plan: Last?bone?density?test?was?in?January?2021 Ordered?bone?density?test?and?she?can?schedule?this?for?January (4) Lower extremity weakness: Code(s): R29.898 - Other symptoms and signs involving the musculoskeletal system Plan: Complaints?of?lower?extremity?weakness?and?has?mild?left?lower?extremity?weaknes s?with?mild?unsteady?gait Referred?to?physical?therapy (5) Unsteady gait: Code(s): R26.81 - Unsteadiness on feet Plan: As?above Orders: Orders Lipid Panel Today Z00.00 - Encounter for general adult medical examination without abnormal findings Microalbumin, Random (w Creat) Today I10 - Essential (primary) hypertension TSH reflex Free T4 Today Z00.00 - Encounter for general adult medical examination without abnormal findings Vitamin D 25-OH Total Today E55.9 - Vitamin D deficiency, unspecified XR DEXA axial skeleton Today M81.0 - Age-related osteoporosis without current pathological fracture Comprehensive [place]. Panel Fast Today Z00.00 - Encounter for general adult medical examination without abnormal findings Complete Blood Count Auto Diff Today Z00.00 - Encounter for general adult medical examination without abnormal findings UA and rflx microscopic Today Z00.00 - Encounter for general adult medical examination without abnormal findings PT Evaluation and Treatment Today R26.81 - Unsteadiness on feet, R29.898 - Other symptoms and signs involving the musculoskeletal system Medications: Changed From hydrochlorothiazide 25 mg PO DAILY 90 tabs 0RF R29.898 - Other symptoms and signs involving the musculoskeletal system To hydrochlorothiazide # 95 tabs per 90 days; patient may take an additional tablet if BP > 140/90 and call PCP. 25 mg PO DAILY 90 days 95 tabs 2RF R29.898 - Other symptoms and signs involving the musculoskeletal system Coding Level of Care Code Est Pt Level 3 (75603) Diagnoses Essential hypertension I10 Breast cancer screening by mammogram Z12.31 Age-related osteoporosis without current pathological fracture M81.0 Osteoporosis type: age-related Presence of current pathological fracture: without current pathological fracture Lower extremity weakness R29.898 Unsteady gait R26.81
== END 2023-09-11 15:14 | disposition home or self-care (01) ==
PROVIDERS: PCP Family Medicine; Visit Provider Family Medicine
DX: I10 Essential (primary) hypertension (principal); Z12.31 Encounter for screening mammogram for malignant neoplasm of breast; M81.0 Age-related osteoporosis without current pathological fracture; R29.898 Other symptoms and signs involving the musculoskeletal system; R26.81 Unsteadiness on feet
CPT/HCPCS: 99214

== ENCOUNTER 2024-02-18 10:34 | Outpatient (REF) | payer MEDICARE, SELFPAY ==
[2024-02-18 14:08] LABS: MANUAL DIFF FLAG NO
[2024-02-18 14:16] LABS: Eosinophils Absolute Auto 0.1 X10*3/uL (0.0-0.4); Eosinophils Percent Auto 2.8 % (0-4); Hematocrit 38.5 % (37.0-47.0); Hemoglobin 10.8 g/dl (12.0-16.0); Imm Gran Abs Auto 0.02 X10*3/uL (0.00-0.03); Imm Gran Pct Auto 0.5 % (0.0-0.4); Lymphocytes Absolute Auto 0.8 X10*3/uL (1.2-4.9); Lymphocytes Percent Auto 18.9 % (20-40); Mean Corpuscular HGB Conc 28.1 g/dl (31.0-35.0); Mean Corpuscular Hemoglobin 22.5 pg (27.0-33.0); Mean Platelet Volume 10.4 fL (9.4-12.3); Monocytes Absolute Auto 0.5 X10*3/uL (0.1-1.2); Monocytes Percent Auto 11.3 % (2-11); Neutrophils Absolute Auto 2.6 x10*3/uL (2.0-8.3); Neutrophils Percent Auto 65.5 % (45-73); Platelet Count 297 X10*3/uL (160-400); Red Blood Count 4.81 X10*6/uL (4.20-5.50); Red Cell Distribution Width 19.5 % (11.0-16.0)
[2024-02-18 14:37] LABS: Alanine Aminotransferase 15 U/L (0-31); Albumin Level 4.4 g/dL (3.5-5.0); Alkaline Phosphatase 47 U/L (39-117); Anion Gap 12 (12-20); Aspartate Amino Transferase 20 U/L (5-31); Bilirubin Total 0.5 mg/dL (0.0-1.0); Blood Urea Nitrogen 10 mg/dL (9-16); Calcium 10.2 mg/dL (8.4-10.2); Carbon Dioxide 30 mmol/L (22-29); Chloride 104 mmol/L (96-108); Cholesterol 209 mg/dL (<200); Estimated Glomerular Filt Rate > 60; Glucose Fasting 103 mg/dL (60-99); HDL Cholesterol 84 mg/dL (>40); LDL Cholesterol Calculated 98 mg/dL (<100); Potassium 3.9 mmol/L (3.3-5.1); Sodium 142 mmol/L (135-145); Total Protein 7.3 g/dL (6.5-8.0); Triglycerides 136 mg/dL (<150)
[2024-02-18 14:56] LABS: TSH reflex Free T4 1.24 uIU/mL (0.32-4.0); Vitamin D 25-OH Total 6.9 ng/mL (>30)
== END 2024-02-18 10:35 | disposition home or self-care (01) ==
LOC: HO.WFDLDS 10:34
PROVIDERS: Visit Provider Family Medicine
DX: Z00.00 Encounter for general adult medical examination without abnormal findings (principal); E55.9 Vitamin D deficiency, unspecified
CPT/HCPCS: 36415; 80053; 80061; 82306; 84443; 85025

== ENCOUNTER 2024-03-03 | Outpatient (REF) | payer MEDICARE, SELFPAY ==
[2024-03-03 17:50] LABS: Appearance Urine Clear; Color Urine Yellow; Glucose Urine UA Negative (Negative); Leukocyte Esterase Urine Moderate (2+) (Negative); Nitrite Urine Positive (Negative); PH 6.5 (5.0-9.0); Specific Gravity - Urine 1.015 (1.005-1.025); UMIC TRIGGER UA YES; Urine Blood Negative (Negative); Urine Ketones Negative (Negative); Urine Protein Negative (Neg-Trace)
[2024-03-03 18:09] LABS: Bacteria Urine 4+ (None Seen); Hyaline Casts Urine 0-2 /LPF (0-2); RBC Urine 0-2 /HPF (0-2); Squamous Epithelial Cell Urine 0-2 /HPF (0-2); WBC Urine >50 /HPF (0-5)
[2024-03-03 18:24] LABS: Creatinine Urine 54.37 mg/dL; Microalbum/Creatinine Ratio Ur 16.5 ug/mg cr (<30)
== END 2024-03-03 00:01 | disposition home or self-care (01) ==
LOC: HO.LNP
PROVIDERS: Visit Provider Family Medicine
DX: Z00.00 Encounter for general adult medical examination without abnormal findings (principal); D50.9 Iron deficiency anemia, unspecified
CPT/HCPCS: 81001; 82043; 82570

== ENCOUNTER 2024-03-03 14:28 | Outpatient (AMB) | payer MEDICARE, SELFPAY ==
--- NOTE | 2024-03-03 14:35 | A.OFFPC_ITS ---
Vital Signs 03/03/24 14:51 Height 5 ft 2 in Weight 154 lb 4 oz BMI 28.2 BP 130/74 Blood Pressure Location Lt brachial Position Sitting Respiration 14 Pulse 109 H Pulse Source Pulse Oximeter Temp 97.3 F Temp Source Temporal Artery Scan Pulse Oximetry (%) 96 Oxygen Delivery Method Room Air Intake Visit Reasons: FOLLOW UP Intake Note: f/u for lab results Allergies Seasonal Allergies Allergy (Intermediate, Verified 03/03/24 14:50) sneezing atorvastatin [Lipitor] Adverse Reaction (Severe, Verified 03/03/24 14:50) myopathy Tobacco use date assessed: 09/11/23 Dental Screening Dental Screen Date: 12/31/22 HPI FOLLOW UP HPI Details 83 y/o female presenets to f/u chronic c onditions. Blood pressure today 130/74, 109p. She is on hydrochlorothiazide 25mg daily. Labs drawn 02/18/24. Reviewed labs with pt. Hgb at 10.8 g/dL. Triglycerides 136. TC 209. LDL 98. HDL 84. She is on pravastatin 5mg daily. Follows up with rheumatology for osteoporosis. She is already on alendronate. HPI Comments History of Present Illness Details Documentation assistance for Constantino Wise MD, was provided by Chas Li, Front End Software Engineer on 03/03/2024 at 2:57 PM EST. I, Dr. Wise, have read, observed, and verified documentation. [facility] Medical History Crohn disease Hypertension Lipoma of chest wall Surgical History H/O adenoidectomy History of lipoma History of tonsillectomy Family History Father Hodgkins lymphoma Mother COPD (chronic obstructive pulmonary disease) Daughter PSA (psoriatic arthritis) Paternal Grandfather No problems noted. Social History Housing: House Alcohol intake: never Patient Tobacco Use Status: Never used Tobacco e-Cigarette/Vaping Use: Never Used Second Hand Smoke Exposure: No service: No Current occupational status: retired Current occupation: Retired RN Current occupational exposures/hazards: No Cognitive needs: No Hearing needs: No Vision needs: No Questionnaire Thrive Questionnaire Date Thrive assessed: 02/26/24 I am a: Patient What is your living situation today?: I have a steady place to live Within the past 12 months, did the food you bought not last and you didn't have the money to get more?: I choose not to answer this question Within the past 12 months, did you worry whether your food would run out before you got money to buy more?: I choose not to answer this question Do you have trouble paying for medicines?: No Do you have trouble getting transportation to medical appointments?: No Do you have trouble paying your heating and electricity bill?: No Do you have trouble taking care of your child, family member or friend?: No Do you have trouble with day-to-day activities such as bathing, preparing meals, shopping, managing finances, etc.?: No Are you currently unemployed and looking for a job?: No Are you interested in more education?: No Please select the resources that you would like help with: None Currently or been in a relationship where the following occur: I choose not to answer THRIVE Score: 0 AUDIT C Alcohol Use Questionnaire (AUDIT-C) 2. How many drinks containing alcohol do you have on a typical day when you are drinking?: 1 or 2 3. How often do you have six or more drinks on one occasion?: Never Total Score: 0 CYRIL-7 AMB Questionnaire CYRIL-7 Date CYRIL - 7 assessed: 05/22/22 Feeling nervous, anxious, or on edge: 0 = Not at all Not being able to stop or control worryin = Not at all Worrying too much about different things: 0 = Not at all Trouble relaxin = Not at all Being so restless that it is hard to sit still: 0 = Not at all Becoming easily annoyed or irritable: 0 = Not at all Feeling afraid as if something awful might happen: 0 = Not at all Total CYRIL-7 score (0-4 normal; 5-9 mild; 10-14 moderate; 15-21 severe): 0 Source: Developed by Drs. Giovanni Oneil, Chen Duron, Philippe Vazquez and colleagues, with an educational buddy from [employer]. Review of Systems Const Denies chills, Denies fatigue, Denies fever(s), Denies headache(s) and Denies weakness ENT Denies dizziness and Denies headache(s) Card Denies dyspnea Resp Denies cough, Denies dyspnea, Denies wheezing and Denies other (shortness of breath) Musc Denies numbness and Denies tingling Neuro Denies dizziness, Denies headache(s), Denies numbness, Denies tingling and Denies weakness Psych Denies anxiety and Denies depression Endo Denies fatigue Aller/Immun Denies wheezing Physical exam (Primary Care) Vital Signs: Last Vital Signs Temp 97.3 F 03/03/24 14:51 Pulse 109 H 03/03/24 14:51 Resp 14 03/03/24 14:51 BP 130/74 03/03/24 14:51 Pulse Ox 96 03/03/24 14:51 Oxygen Delivery Method Room Air 03/03/24 14:51 BMI result Body Mass Index 28.2 Tobacco/Smoking Status: Tobacco use Status Tobacco use date assessed 09/11/23 03/03/24 14:35 Patient Tobacco Use Status Never used Tobacco 03/03/24 14:35 e-Cigarette/Vaping Use Never Used 03/03/24 14:35 Thrive Assessment: Date of Thrive Assessment Date Thrive assessed 02/26/24 03/03/24 14:35 Currently or been in a relationship where the following occur: I choose not to answer Const General: well developed; No acute distress Nutritional Appearance: well nourished Orientation/consciousness: patient oriented x3 HENMT Head: Yes normocephalic and Yes atraumatic Eyes General: appearance normal, both eyes and all related structures Pupils: Equal, round and reactive pupils present EOM: EOMs intact bilaterally Resp Effort & Inspection: normal respiratory effort Neuro General: patient oriented x3 and gait normal Cranial nerves: Yes Equal, round and reactive pupils present Psych Affect: normal affect Coding Level of Care Code Est Pt Level 4 (19754) Diagnoses Essential hypertension I10 Hyperlipidemia E78.5 Age-related osteoporosis without current pathological fracture M81.0 Osteoporosis type: age-related Presence of current pathological fracture: without current pathological fracture Low vitamin D level R79.89 Assessment & Plan Assessment & Plan (1) Essential hypertension: Code(s): I10 - Essential (primary) hypertension Category: Medical Plan: Blood?pressure?is?controlled.??Goal?is?less?than?140/90 Continue?current?medication?regimen (2) Hyperlipidemia: Code(s): E78.5 - Hyperlipidemia, unspecified Category: Medical Plan: LDL?cholesterol?shows?good?control?and?HDL?ratios?are?ideal Continue?current?medication (3) Osteoporosis: Code(s): M81.0 - Age-related osteoporosis without current pathological fracture Category: Medical Qualifiers: Osteoporosis type: age-related Presence of current pathological fracture: without current pathological fracture Qualified Code(s): M81.0 - Age- related osteoporosis without current pathological fracture Plan: History?of?osteoporosis?and?she?is?on?alendronate. She?has?an?upcoming?appointment?with?her?[employer] worker.??However,?she?has?not?em meneses?her?bone?density?test?done?yet. She?may?want?to?call?her?[employer] worker?to?see?if?they ?want?to?reschedule?this?for?after?her?bone?density?test. Of?note,?she?also?has?very?low?vitamin-D -see?below (4) Low vitamin D level: Code(s): R79.89 - Other specified abnormal findings of blood chemistry Category: Medical Plan: Very?low?vitamin-D?level Ordered?vitamin-D?which?she?will?take?weekly. We?can?recheck?this?with?next?blood?draw Orders: Orders Vitamin D 25-OH Total Today E55.9 - Vitamin D deficiency, unspecified Complete Blood Count Auto Diff Today D50.9 - Iron deficiency anemia, unspecified, Z00.00 - Encounter for general adult medical examination without abnormal findings Influenza [id number] Immunization Today Z23 - Encounter for immunization Comprehensive Met. Panel Today D50.9 - Iron deficiency anemia, unspecified Hemoglobin A1c Today R73.01 - Impaired fasting glucose Medications: New Fluarix Triv [id number] (PF) (flu vacc [id number] 6mos up(PF)) 0.5 mL IM ONCE 0.5 mL 0RF NS Z23 - Encounter for immunization
[2024-03-03 14:51] VITALS: BP 130/74; PULSE 109; RESP 14; TEMP 36.3; O2SAT 96; BMI 28.2
== END 2024-03-03 15:12 | disposition home or self-care (01) ==
PROVIDERS: PCP Family Medicine; Visit Provider Family Medicine
DX: I10 Essential (primary) hypertension (principal); E78.5 Hyperlipidemia, unspecified; M81.0 Age-related osteoporosis without current pathological fracture; R79.89 Other specified abnormal findings of blood chemistry; Z23 Encounter for immunization

== ENCOUNTER → 2024-03-03 14:28 | Outpatient (BNVA) | payer MEDICARE, SELFPAY | PROVIDERS: PCP Family Medicine; Visit Provider Family Medicine | DX: I10 Essential (primary) hypertension (principal); E78.5 Hyperlipidemia, unspecified; M81.0 Age-related osteoporosis without current pathological fracture; E55.9 Vitamin D deficiency, unspecified; Z79.899 Other long term (current) drug therapy; Z23 Encounter for immunization | CPT/HCPCS: 90471; 90656; 99212 ==

== ENCOUNTER 2024-03-19 13:03 | Outpatient (REF) | payer MEDICARE, SELFPAY ==
--- NOTE | ~2024-03-19 | MM_ITS ---
EXAMINATION: BONE DENSITOMETRY CLINICAL INDICATION: Age-related osteoporosis without current pathological fracture. COMPARISON: Previous BD dated 01/16/2022 and baseline BD dated 08/30/2006. TECHNIQUE: Using a [employer] DXA System (software version: 13.1) manufactured by [employer], dual-energy x-ray absorptiometry was performed of the lumbar spine and left hip. The images are of good technical quality. Summary results are attached. FINDINGS: LEFT FEMUR, NECK: Current: BMD 0.627 g/cm2, Z-score -0.8, T-score -3.0, osteoporosis. Prior: BMD 0.589 g/cm2. Baseline: BMD 0.860 g/cm2. LEFT FEMUR, TOTAL: Current: BMD 0.722 g/cm2, Z-score -0.3, T-score -2.3, osteopenia, 1.5% increase from previous, 31.0% decrease from baseline (<5% change is not significant). Prior: BMD 0.711 g/cm2. Baseline: BMD 1.047 g/cm2. AP SPINE L1-L3 (excluding L4): The data of L1-L4 has been changed to exclude the L4 vertebral body, because significant degenerative change at this level may cause overestimation of lumbar spine density. Current: BMD 1.178 g/cm2, Z-score 1.8, T-score 0.1, normal, 8.6% increase from previous, 5.7% increase from baseline (<5% change is not significant). Prior: BMD 1.085 g/cm2. Baseline: BMD 1.114 g/cm2. IDENTIFIED RISK FACTORS: Early menopause, secondary osteoporosis, thiazide, osteoporosis. HISTORY OF FRACTURE: None listed. MEDICATIONS: Bisphosphonate, vitamin D. MM/XR DEXA axial skeleton IMPRESSION: 1. DIAGNOSIS: Osteoporosis based on the lowest T-score value of -3.0 in the femoral neck applying World Health Organization criteria. 2. 10-YEAR FRACTURE RISK PREDICTION, FRAX: According to the guidelines, FRAX calculation should only be performed on patients in the osteopenia bone density category. Therefore, FRAX was not performed on this patient. 3. Treatment Recommendations: NOF guidelines recommend consideration for treatment in postmenopausal women and men age 50 and older presenting with the following: -A hip or vertebral (clinical or morphometric) fracture. -T-score less than or equal to -2.5 at the femoral neck or spine after appropriate evaluation to exclude secondary causes. -Low bone mass at the hip or spine and a 10-year fracture probability by FRAX of greater than or equal to 3% for hip fracture or greater than or equal to 20% for major osteoporotic fracture based on the [place] adapted WHO algorithm. 4. Other Recommendations: All treatment decisions require clinical judgment and consideration of individual patient factors, including patient preferences, comorbidities, previous drug use, risk factors not captured in the FRAX model (e.g. frailty, falls, vitamin D deficiency, increased bone turnover, interval significant decline in bone density) and possible under or overestimation of fracture risk by FRAX. Additional medical evaluation for secondary cause of low bone mineral density may be appropriate. FUTURE SCAN RECOMMENDATION: People with diagnosed cases of osteoporosis or at high risk for fracture should have regular bone mineral density tests. For patients eligible for Medicare, routine testing is allowed once every 2 years. The testing frequency can be increased to one year for patients who have rapidly progressing disease, those who are receiving or discontinuing medical therapy to restore bone mass, or have additional risk factors. Electronically signed by: Chad Valerio MD 03/23/2024 09:53 AM ARI[facility] TIRADO
== END 2024-03-19 13:04 | disposition home or self-care (01) ==
LOC: HO.MAMMO 13:03
PROVIDERS: PCP Family Medicine; Visit Provider Student in an Organized Health Care Education/Training Program
DX: M81.0 Age-related osteoporosis without current pathological fracture (principal)
CPT/HCPCS: 77080

== ENCOUNTER 2024-05-04 11:05 | Outpatient (AMB) | payer MEDICARE, SELFPAY ==
[2024-05-04 11:11] VITALS: BP 140/76; PULSE 104; O2SAT 98; BMI 27.9
--- NOTE | 2024-05-04 11:11 | MHC.OFFVIS ---
Vital Signs 05/04/24 11:11 Height 5 ft 2 in Weight 152 lb 8.958 oz BMI 27.9 BP 140/76 H Blood Pressure Location Lt brachial Position Sitting Pulse 104 H Pulse Source Pulse Oximeter Pulse Oximetry (%) 98 Oxygen Delivery Method Room Air Intake Visit Reasons: OA/osteoporosis Intake Note: Patient last seen by Doctor Adan Torres on 01/09/23. Presents today for OA/Osteoporosis follow up and XR Dexa test results. Allergies Seasonal Allergies Allergy (Intermediate, Verified 05/04/24 11:13) sneezing atorvastatin [Lipitor] Adverse Reaction (Severe, Verified 05/04/24 11:13) myopathy Medication List - Last Reconciled 05/04/24 by Adan Torres MD alendronate 70 mg PO QWEEK blood pressure test kit-large check bp daily cholecalciferol (vitamin D3) 1,250 mcg PO QWEEK 28 days clotrimazole-betamethasone 1-0.05 % 1 appl topical BID flu vacc [id number](65yr up)-PF mL IM hydrochlorothiazide 25 mg PO DAILY 90 days ibuprofen (Advil) 400 mg PO Q8H nitrofurantoin monohyd/m-cryst 100 mg (Macrobid) 100 mg PO BID 7 days pravastatin 5 mg (1/2 x 10 mg) PO DAILY sulfasalazine 1,000 mg (2 x 500 mg) PO BID 30 days varicella-zoster gE-AS01B (PF) 50 mcg/0.5 mL IM HPI Comments Details: 84-year-old female with generalized osteoarthritis and osteoporosis returns for follow-up. Feeling about the same overall. Has not had any side effects related to Fosamax. Recent vitamin-D levels were quite low and she was started on vitamin-D supplementation by her PCP. Initial history: This is an 82-year-old female with past medical history of hypertension, Crohn's colitis, osteoporosis and generalized osteoarthritis who presents for evaluation of bilateral hand pain. Patient has had bilateral hand osteoarthritis for years now the majority of the pain is in her thumbs. Pain is worse in winter time and when it is raining. She sometimes has difficulty grabbing objects. 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 She takes Advil 400 mg almost every day for pain which does provide some moderate relief. Celebrex gave her side effects. She also uses an anesthetic cream. She also complains that her neck cracks but she has no neck pain or reduced mobility. She was also diagnosed with osteoporosis about 5 years ago and was on Fosamax for a few months but stopped it due to joint and muscle pain. [facility]LY [facility], [facility] Medical History Crohn disease Hypertension Lipoma of chest wall Surgical History History of tonsillectomy H/O adenoidectomy History of lipoma Family History Father Hodgkins lymphoma Mother COPD (chronic obstructive pulmonary disease) Daughter PSA (psoriatic arthritis) Paternal Grandfather No problems noted. Social History Housing: House Alcohol intake: never Patient Tobacco Use Status: Never used Tobacco e-Cigarette/Vaping Use: Never Used Second Hand Smoke Exposure: No service: No Current occupational status: retired Current occupation: Retired RN Current occupational exposures/hazards: No Cognitive needs: No Hearing needs: No Vision needs: No Review of Systems Musc Reports arthralgias and Denies joint swelling Physical Exam Vital Signs: Last Vital Signs Pulse 104 H 05/04/24 11:11 BP 140/76 H 05/04/24 11:11 Pulse Ox 98 05/04/24 11:11 Oxygen Delivery Method Room Air 05/04/24 11:11 BMI result Body Mass Index 27.9 Const General: cooperative, healthy appearing, comfortable and no acute distress Nutritional Appearance: overweight Orientation/consciousness: patient oriented x3 Limitations: ambulation with cane HEENT Head: Yes normocephalic and Yes atraumatic Mouth: moist mucous membranes Resp Effort & Inspection: normal respiratory effort and able to speak in complete sentences Neuro General: patient oriented x3 Extrem Other: Walks slowly and carefully Osteoarthritic changes of her hands with no synovitis. Bilateral grind test positive with crepitus Bijan's and Heberden's nodes Assessment & Plan Assessment & Plan (1) Osteoporosis: Code(s): M81.0 - Age-related osteoporosis without current pathological fracture Category: Medical Qualifiers: Osteoporosis type: age-related Presence of current pathological fracture: without current pathological fracture Qualified Code(s): M81.0 - Age-related osteoporosis without current pathological fracture Plan: DEXA 01/2022 showed T-score-3.2 left hip. Tolerating Fosamax which was started 03/2022 Repeat DEXA 03/2024 showed improving bone density Continue Fosamax weekly Recent vitamin-[place] [address] units of weekly vitamin-D by her PCP normal advised patient to take vitamin D regularly Discussed weight-bearing exercises Labs before next visit in 1 year (2) Abnormal heart rhythm: Code(s): I49.9 - Cardiac arrhythmia, unspecified Category: Medical Qualifiers: Premature depolarization type: ventricular Plan: Abnormal rhythm, likely multiple ectopic beats however other causes such as AFib should be ruled out. Patient states that she has a follow-up appointment soon with her PCP and will request an EKG Plan I spent 26 minutes reviewing patient's chart, evaluating patient, ordering diagnostic workup, counseling patient and documenting in the chart Orders: Orders Vitamin D 25-OH Total 1 Year R79.89 - Other specified abnormal findings of blood chemistry Basic Metabolic Panel 1 Year M81.0 - Age-related osteoporosis without current pathological fracture Coding Level of Care Code Est Pt Level 4 (41729) Diagnoses Age-related osteoporosis without current pathological fracture M81.0 Osteoporosis type: age-related Presence of current pathological fracture: without current pathological fracture Abnormal heart rhythm I49.9 Premature depolarization type: ventricular
== END 2024-05-04 11:32 | disposition home or self-care (01) ==
PROVIDERS: PCP Family Medicine; Visit Provider Student in an Organized Health Care Education/Training Program
DX: M81.0 Age-related osteoporosis without current pathological fracture (principal); I49.9 Cardiac arrhythmia, unspecified
CPT/HCPCS: 99214

== ENCOUNTER → 2024-05-04 11:05 | Outpatient (BNVA) | payer MEDICARE, SELFPAY | PROVIDERS: PCP Family Medicine; Visit Provider Student in an Organized Health Care Education/Training Program | DX: M81.0 Age-related osteoporosis without current pathological fracture (principal); I49.9 Cardiac arrhythmia, unspecified | CPT/HCPCS: 99212 ==

== ENCOUNTER 2024-08-05 07:36 | Outpatient (REF) | payer MEDICARE, SELFPAY ==
[2024-08-05 11:11] LABS: Basophils Percent Auto 0.8 % (0-2); Eosinophils Absolute Auto 0.1 X10*3/uL (0.0-0.4); Eosinophils Percent Auto 2.8 % (0-4); Hematocrit 41.1 % (37.0-47.0); Hemoglobin 12.4 g/dl (12.0-16.0); Imm Gran Abs Auto 0.01 X10*3/uL (0.00-0.03); Imm Gran Pct Auto 0.3 % (0.0-0.4); Lymphocytes Percent Auto 25.1 % (20-40); MANUAL DIFF FLAG NO; Mean Corpuscular HGB Conc 30.2 g/dl (31.0-35.0); Mean Corpuscular Hemoglobin 25.5 pg (27.0-33.0); Mean Corpuscular Volume 84.6 fL (80.0-98.0); Mean Platelet Volume 10.7 fL (9.4-12.3); Monocytes Absolute Auto 0.4 X10*3/uL (0.1-1.2); Monocytes Percent Auto 10.9 % (2-11); Neutrophils Absolute Auto 2.3 x10*3/uL (2.0-8.3); Neutrophils Percent Auto 60.1 % (45-73); Platelet Count 241 X10*3/uL (160-400); Red Blood Count 4.86 X10*6/uL (4.20-5.50); Red Cell Distribution Width 18.9 % (11.0-16.0); White Blood Count 3.9 X10*3/uL (4.8-10.8)
[2024-08-05 11:31] LABS: Alanine Aminotransferase 21 U/L (0-31); Albumin Level 4.1 g/dL (3.5-5.0); Alkaline Phosphatase 52 U/L (39-117); Anion Gap 12 (12-20); Aspartate Amino Transferase 26 U/L (5-31); Bilirubin Total 0.5 mg/dL (0.0-1.0); Blood Urea Nitrogen 11 mg/dL (9-16); Calcium 9.2 mg/dL (8.4-10.2); Carbon Dioxide 28 mmol/L (22-29); Chloride 107 mmol/L (96-108); Estimated Glomerular Filt Rate > 60; Glucose Random 94 mg/dL (60-115); Potassium 3.4 mmol/L (3.3-5.1); Sodium 144 mmol/L (135-145); Total Protein 6.8 g/dL (6.5-8.0)
[2024-08-05 11:36] LABS: Estimated Average Glucose 88 mg/dL; Hemoglobin A1c % 4.7 % (<6.0)
== END 2024-08-05 07:37 | disposition home or self-care (01) ==
LOC: HO.WFDLDS 07:36
PROVIDERS: Visit Provider Family Medicine
DX: I10 Essential (primary) hypertension (principal); R79.89 Other specified abnormal findings of blood chemistry; R73.01 Impaired fasting glucose; M81.0 Age-related osteoporosis without current pathological fracture; Z79.899 Other long term (current) drug therapy; Z00.00 Encounter for general adult medical examination without abnormal findings; D50.9 Iron deficiency anemia, unspecified; E55.9 Vitamin D deficiency, unspecified
CPT/HCPCS: 36415; 80053; 82306; 83036; 85025; 96127; 99212

== ENCOUNTER 2024-08-05 11:34 | Outpatient (AMB) | payer MEDICARE, SELFPAY ==
--- NOTE | 2024-08-05 11:39 | MHC.PC.OV ---
Vital Signs 08/05/24 11:42 Height 5 ft 2 in Weight 151 lb 2 oz BMI 27.6 BP 130/88 Blood Pressure Location Rt brachial Position Sitting Respiration 14 Pulse 93 Pulse Source Pulse Oximeter Temp 98.3 F Temp Source Oral Pulse Oximetry (%) 97 Oxygen Delivery Method Room Air Intake Visit Reasons: f/u hypertension, labs Intake Note: patient is scheduled for follow up htn and lab review Vending Machine Coin [employer]or Required: No Allergies Seasonal Allergies Allergy (Intermediate, Verified 08/05/24 11:40) sneezing atorvastatin [Lipitor] Adverse Reaction (Severe, Verified 08/05/24 11:40) myopathy Medication List - Last Reconciled 08/05/24 by Constantino Wise MD alendronate 70 mg PO QWEEK blood pressure test kit-large check bp daily cholecalciferol (vitamin D3) 1,250 mcg PO QWEEK 28 days clotrimazole-betamethasone 1-0.05 % 1 appl topical BID flu vacc [id number](65yr up)-PF mL IM hydrochlorothiazide 25 mg PO DAILY 90 days ibuprofen (Advil) 400 mg PO Q8H pravastatin 5 mg (1/2 x 10 mg) PO DAILY sulfasalazine 1,000 mg (2 x 500 mg) PO BID 30 days varicella-zoster gE-AS01B (PF) 50 mcg/0.5 mL IM Tobacco use date assessed: 09/11/23 Dental Screening Dental Screen Date: 12/31/22 HPI f/u hypertension, labs HPI Details 84 y/o female presents to f/u HTN, labs. Labs drawn 08/05/24. Reviewed labs with pt. WBC 3.9. A1c 4.7%. Mild anemia has resolved. Blood pressure today 130/88, 93p. She is on hydrochlorothiazide 25mg daily. [facility] Medical History Crohn disease Hypertension Lipoma of chest wall Surgical History History of tonsillectomy H/O adenoidectomy History of lipoma Family History Father Hodgkins lymphoma Mother COPD (chronic obstructive pulmonary disease) Daughter PSA (psoriatic arthritis) Paternal Grandfather No problems noted. Social History Housing: House Alcohol intake: never Patient Tobacco Use Status: Never used Tobacco e-Cigarette/Vaping Use: Never Used Second Hand Smoke Exposure: No service: No Current occupational status: retired Current occupation: Retired RN Current occupational exposures/hazards: No Cognitive needs: No Hearing needs: No Vision needs: No Questionnaire PHQ-9 Over the last 2 weeks, how often have you been bothered by any of the following problems? 1. Little interest or pleasure in doing things: not at all 2. Feeling down, depressed, or hopeless: not at all 3. Trouble falling or staying asleep, or sleeping too much: not at all 4. Feeling tired or having little energy: not at all 5. Poor appetite or overeating: not at all 6. Feeling bad about yourself - or that you are a failure or have let yourself or your family down: not at all 7. Trouble concentrating on things, such as reading the newspaper or watching television: not at all 8. Moving or speaking so slowly that other people could have noticed. Or the opposite - being so fidgety or restless that you have been moving around a lot more than usual: not at all 9. Thoughts that you would be better off or of hurting yourself in some way: not at all Total score: 0 Source: Developed by Drs. Giovanni Oneil, Chen Duron, Philippe Vazquez and colleagues, with an educational buddy from [employer]. Thrive Questionnaire Date Thrive assessed: 06/12/24 I am a: Patient What is your living situation today?: I have a steady place to live Within the past 12 months, did the food you bought not last and you didn't have the money to get more?: Never true Within the past 12 months, did you worry whether your food would run out before you got money to buy more?: Never true Do you have trouble paying for medicines?: No Do you have trouble getting transportation to medical appointments?: No Do you have trouble paying your heating and electricity bill?: No Do you have trouble taking care of your child, family member or friend?: No Do you have trouble with day-to-day activities such as bathing, preparing meals, shopping, managing finances, etc.?: No Are you currently unemployed and looking for a job?: No Are you interested in more education?: No Please select the resources that you would like help with: None Currently or been in a relationship where the following occur: No concerns reported THRIVE Score: 0 AUDIT C Alcohol Use Questionnaire (AUDIT-C) 2. How many drinks containing alcohol do you have on a typical day when you are drinking?: 1 or 2 Total Score: 0 CYRIL-7 AMB Questionnaire CYRIL-7 Date CYRIL - 7 assessed: 05/22/22 Source: Developed by Drs. Giovanni Oneil, Chen Duron, Philippe Vazquez and colleagues, with an educational buddy from [employer]. Review of Systems Const Denies chills, Denies fatigue, Denies fever(s), Denies headache(s) and Denies weakness ENT Denies dizziness and Denies headache(s) Card Denies dyspnea Resp Denies cough, Denies dyspnea, Denies wheezing and Denies other (shortness of breath) Musc Denies numbness and Denies tingling Neuro Denies dizziness, Denies headache(s), Denies numbness, Denies tingling and Denies weakness Psych Denies anxiety and Denies depression Endo Denies fatigue Aller/Immun Denies wheezing Physical exam (Primary Care) Vital Signs: Last Vital Signs Temp 98.3 F 08/05/24 11:42 Pulse 93 08/05/24 11:42 Resp 14 08/05/24 11:42 BP 130/88 08/05/24 11:42 Pulse Ox 97 08/05/24 11:42 Oxygen Delivery Method Room Air 08/05/24 11:42 BMI result Body Mass Index 27.6 Tobacco/Smoking Status: Tobacco use Status Tobacco use date assessed 09/11/23 08/05/24 11:46 Patient Tobacco Use Status Never used Tobacco 08/05/24 11:46 e-Cigarette/Vaping Use Never Used 08/05/24 11:46 PHQ-9: PHQ-9 Score PHQ-9: Total score 0 08/05/24 11:46 Thrive Assessment: Date of Thrive Assessment Date Thrive assessed 06/12/24 08/05/24 11:46 Currently or been in a relationship where the following occur: No concerns reported Const General: well developed; No acute distress Nutritional Appearance: well nourished Orientation/consciousness: patient oriented x3 [facility] Head: Yes normocephalic and Yes atraumatic Eyes General: appearance normal, both eyes and all related structures Pupils: Equal, round and reactive pupils present EOM: EOMs intact bilaterally Resp Effort & Inspection: normal respiratory effort Auscultation: clear to auscultation bilaterally Cardio Rate: regular rate Rhythm: regular rhythm Heart sounds: S1 normal heart sound present, S2 normal heart sound present, no gallops, no murmurs and no rubs Neuro General: patient oriented x3 and gait normal Cranial nerves: Yes Equal, round and reactive pupils present Psych Affect: normal affect Coding Level of Care Code Est Pt Level 4 (42926) Diagnoses Essential hypertension I10 Low vitamin D level R79.89 Elevated fasting blood sugar R73.01 Age-related osteoporosis without current pathological fracture M81.0 Osteoporosis type: age-related Presence of current pathological fracture: without current pathological fracture Assessment & Plan Assessment & Plan (1) Essential hypertension: Code(s): I10 - Essential (primary) hypertension Category: Medical Plan: Blood?pressure?is?controlled.??Goal?is?less?than?140/90 Continue?current?medication (2) Low vitamin D level: Code(s): R79.89 - Other specified abnormal findings of blood chemistry Category: Medical Plan: Vitamin-D?level?had?been?very?low?and?she?was?started?on?vitamin-D?supplementation. Now?within?normal?range Will?continue?to?monitor (3) Elevated fasting blood sugar: Code(s): R73.01 - Impaired fasting glucose Category: Medical Plan: Patient?had?had?a?measured?elevated?fasting?blood?sugar?however?more?recently?random?blood?sugar?and?her?A1c?are?normal. (4) Osteoporosis: Code(s): M81.0 - Age-related osteoporosis without current pathological fracture Category: Medical Qualifiers: Osteoporosis type: age-related Presence of current pathological fracture: without current pathological fracture Qualified Code(s): M81.0 - Age-related osteoporosis without current pathological fracture Plan: Patient?is?tolerating?alendronate?and?now?on?a?vitamin-D?supplement. Her?bone?density?test?in?2021?showed?osteoporosis.??More?recently?in?2023?bone?density?shows?improvement?though?still?within?osteoporosis?range. Continue?alendronate?and?vitamin-D
[2024-08-05 11:42] VITALS: BP 130/88; PULSE 93; RESP 14; TEMP 36.8; O2SAT 97; BMI 27.6
--- OUTSIDE RECORDS SUMMARY | 2024-08-05 14:08 | XMS_ITS | Clinical Summary ---
Author Organization [facility] Address [address] [place] [address] Care Team Providers Care Insurance Operations Rep Name Role Phone Unavailable Primary Care Provider Unavailabl e Allergies Active Allergy Reactions Criticality Noted Date Comments Atorvastatin Other (See Comments) 07/22/2017 myalgia Seasonal 07/22/2017 Medications Medication Sig Dispensed Refills Start Date End Date Status Fexofenadine HCl (ONI PO) Take by mouth. 0 Active sulfaSALAzine (AZULFIDINE) 500 MG EC tablet Take 1,000 mg by mouth 2 (two) times a day. 11 07/12/2017 Active Ibuprofen (ADVIL) 200 MG CAPS Take by mouth. 0 Active loperamide (IMODIUM) 1 MG/5ML solution Take 1 mg by mouth 2 (two) times a day. 0 Active clotrimazole-betametha sone (LOTRISONE) creamIndications:Histo ry of tinea corporis APPLY TO AFFECTED AREA TWICE A DAY 45 g 3 09/08/2019 Active pravastatin (PRAVACHOL) tablet 10 mgIndications:Mixed hyperlipidemia TAKE 1/2 TAB BY MOUTH EVERY DAY 45 tablet 7 11/19/2019 Active hydroCHLOROthiazide (HYDRODIURIL) tablet 25 mg Take 1 tablet (25 mg total) by mouth daily. 30 tablet 3 03/21/2020 Active Active Problems Problem Noted Date Diagnosed Date Osteoporosis 05/13/2015 Overview: DEXA: t-2.6 hip FRAX 26%/10% Fosamax stopped fosamx after dental appt Ulcerative colitis Overview: Dr Jeff OA (osteoarthritis) Mixed hyperlipidemia Hypertension Iron deficiency anemia Overview: Due to colitis Allergic rhinitis Immunizations Name Administration Dates Next Due Influenza Quad (Afluria/Fluz one) 0.5mL >=6mon Vial (SD-IIV4) 03/01/2017 Influenza Trivalent (Fluzone High Dose) 0.7 mL (65yrs &>) 01/23/2018 Pneumococcal Conjugate PCV13 06/09/2015 Pneumococcal Polysaccharide PPSV23 06/09/2014 Shingrix Vaccine (Zoster Recombinant) 04/26/2020 Family History Medical History Relation Name Comments Hodgkin's lymphoma Father Breast cancer Maternal Aunt COPD Mother Breast cancer Paternal Aunt Relation Name Status Comments Father Maternal Aunt Mother Paternal Aunt Social History Tobacco Use Types Packs/Day Years Used Date Smoking Tobacco: Never Smokeless Tobacco: Never Alcohol Use Standard Drinks/Week Comments Yes 1 (1 standard drink = 0.6 oz pur e alcohol) occ Sex and Gender Information Value Date Recorded Sex Assigned at Female 12/23/2019 3:58 PM EDT Gender Identity Female 12/23/2019 3:58 PM EDT Sexual Orientation Not on file Last Filed Vital Signs Vital Sign Reading Time Taken Comments Blood Pressure 148/80 01/12/2020 2:00 PM EDT Pulse 78 01/12/2020 2:00 PM EDT Temperature 36.7 ??C (98 ??F) 01/12/2020 2:00 PM EDT Respiratory Rate 16 07/24/2018 11:03 AM EDT Oxygen Saturation 98% 01/12/2020 2:00 PM EDT Inhaled Oxygen Concentration - - Weight 69.9 kg (154 lb) 01/12/2020 2:00 PM EDT Height 156.2 cm (5' 1.5 ) 01/12/2020 2:00 PM EDT Body Mass Index 28.63 01/12/2020 2:00 PM EDT Plan of Treatment Health Maintenance Due Date Last Done Comments COVID-19 Vaccine (#1) 1940 RSV Adult > 60+ Yrs or (1 - 1-dose 75+ series) 2017 Shingrix-Zoster Vaccine (2 of 2) 06/21/2020 04/26/2020 Depression Screening 12/22/2020 12/23/2019, 12/23/2019, 12/23/2019, Additional history exists Fall Risk Assessment 12/22/2020 12/23/2019, 12/23/2019, 12/23/2019 Preventative Health Evaluation 12/22/2020 12/23/2019, 12/23/2019 Osteoporosis Screening (DEXA Scan) 01/14/2022 01/15/2020, 07/11/2017 Influenza Vaccine (#1) 2024 01/23/2018, 2016 DTap / Tdap / Td (2 - Td or Tdap) 01/24/2028 01/23/2018 (Declined) Pneumococcal Vaccine Completed 06/09/2015, 06/09/19 15 Hepatitis B Vaccines Aged Out No long er eligible based on patient's age to complete this topic RSV Ped < 20 months Aged Out No longe r eligible based on patient's age to complete this topic
--- OUTSIDE RECORDS SUMMARY | 2024-08-05 14:08 | XMS_ITS | Patient Health Record ---
Author Organization [facility] Address [address] [place] [id number] Care Team Providers Care Associate Professor Of Education Name Role Phone Lu Post DO Primary Care Provider Pillo Rodriguez Jr Unavailable [phone] Allergies Allergen (clinical drug ingredient) Drug/Non Drug Allergy documented on EMR Reaction Allergy Type Onset Date Status atorvastatin Lipitor Unknown Drug Allergy Acti ve Reason For Referral No Information Medications Medication SIG (Take, Route, Frequency, Duration) Notes Start Date End Date Status sulfaSALAzine 500 MG TAKE 2 TABLETS BY MOUTH TWICE A DAY for 90 Active Gas Relief 80 MG 1 tablet after meals and at bedtime as needed Orally prn Active Advil 200 MG 3 tablet with food or milk as needed Orally BID Active hydroCHLOROthiazide 25 MG 1 tablet in th e morning Orally Once a day Active Imodium A-D 2 MG 1 tablet Orally prn Active predniSONE 10 MG 4 tablets Orally Once a day for 1 week then taper by 1 tablet weekly for 30 Active Hair Skin Nails - as directed Orally Active Pravastatin Sodium 10 MG 1/2 tablet Orally Once a day for 90 days Active sulfaSALAzine 500 MG 2 Orally BID for 30 day(s) This replaces the prevuious Sulfasalazine Rx I sent earlier today. Thanks 12/09/2020 Active Immunizations Vaccine Route Administration Date Status Comme nts Flu vaccine no Preserv 3 and > Unknown 12/24/2013 Admin istered Flu vaccine no Preserv 3 and > Unknown 02/22/2015 Admin istered Flu vaccine no Preserv 3 and > Unknown 03/08/2016 Admin istered Influenza Unknown 01/11/2018 Administered Influenza Unknown 01/11/2019 Administered Problems Problem Type SNOMED Code ICD Code Onset Dates Problem Status W/U Status Risk Notes Problem [id number] Hypertension (I10) Active confirmed Problem [id number] Ulcerative pancolitis with rectal bleeding (K51.011) Active confirmed Plan Of Treatment Future Test Test Name Order Date COLONOSCOPY 12/17/2012 Insurance Providers Payer Name Payer Address Payer Phone Subscriber Number Group Number Insured Name Patient Relationship to Insured Coverage Start Date Coverage End Date MEDICARE OF [place] [address] [place] [address] [id number] LITO SANTILLAN Self - patient is the insured [employer] ATT[employer] CLAIMS [address] [place] [phone] [id number] LITO SANTILLAN Self - patient is the insured Medications Administered Medication Instructions Date of Administration Dosage Notes B-12 07/25/2021 1000 ug Medical (General) History Medical History History ICD Code hypertension Denies NE,DM,CVA,Lung disease,renal dise ase colitis, colonoscopy 12/23 pancolitis, up to date on colon cancer screening Arthritis seasonal allergies Surgical History Surgery Date(Month/Year) tonsillectomy
== END 2024-08-05 12:07 | disposition home or self-care (01) ==
LOC: HO.HMCFM 11:35
PROVIDERS: PCP Family Medicine; Visit Provider Family Medicine
DX: I10 Essential (primary) hypertension (principal); R79.89 Other specified abnormal findings of blood chemistry; R73.01 Impaired fasting glucose; M81.0 Age-related osteoporosis without current pathological fracture

== ENCOUNTER 2024-11-06 13:20 | Outpatient (AMB) | payer MEDICARE, SELFPAY ==
--- NOTE | 2024-11-06 13:25 | A.OFFPC_ITS ---
Vital Signs 11/06/24 13:27 11/06/24 13:41 Height 5 ft 2 in Weight 151 lb 3 oz BMI 27.6 BP 144/84 H 132/76 Blood Pressure Location Rt brachial Rt brachial Position Sitting Sitting Respiration 16 Pulse 71 Pulse Source Pulse Oximeter Temp 97.9 F Temp Source Oral Pulse Oximetry (%) 93 Oxygen Delivery Method Room Air Intake Visit Reasons: fu htn Intake Note: Follow up htn Drum Sander Setter Required: No Allergies Seasonal Allergies Allergy (Intermediate, Verified 11/06/24 13:28) sneezing atorvastatin (Lipitor) Adverse Reaction (Severe, Verified 11/06/24 13:28) myopathy Medication List - Last Reconciled 11/06/24 by Constantino Wise MD alendronate 70 mg PO QWEEK blood pressure test kit-large check bp daily cholecalciferol (vitamin D3) 50 mcg PO DAILY 90 days clotrimazole-betamethasone 1-0.05 % 1 appl topical BID hydrochlorothiazide 25 mg PO DAILY 90 days ibuprofen (Advil) 400 mg PO Q8H pravastatin 5 mg (1/2 x 10 mg) PO DAILY sulfasalazine 1,000 mg (2 x 500 mg) PO BID 30 days varicella-zoster gE-AS01B (PF) 50 mcg/0.5 mL IM Tobacco use date assessed: 11/06/24 Fall risk assessment: 2 + Falls in past year Last assessed Fall Risk: 11/06/24 Dental Screening Dental Screen Date: 11/06/24 Did you have a dental visit in the last 12 months?: Yes Did you have a dental problem in the last 6 months where you did not have access to dental care?: No Was dental information given to patient?: Patient has dentist HPI fu htn HPI Details 84 y/o female presents to f/u hypertensi on, labs. Labs drawn 08/05/24. Reviewed labs with pt. A1c 4.7%. Vitamin D improved from 6.9 to 45.0 ng/mL. Blood pressure today 132/76, 71p. She is on hydrochlorothiazide 25mg daily. Continues to exercise once a week. [facility] Medical History Crohn disease Hypertension Lipoma of chest wall Surgical History History of tonsillectomy H/O adenoidectomy History of lipoma Family History (Updated 11/06/24 @ 13:30 by Larissa Mendieta CMA) Father Hodgkins lymphoma Mother COPD (chronic obstructive pulmonary disease) Daughter PSA (psoriatic arthritis) Paternal Grandfather No problems noted. Social History (Updated 11/06/24 @ 13:42 by Larissa Mendieta CMA) Housing: House Alcohol intake: never Patient Tobacco Use Status: Former Tobacco user Cigarette Packs Per Day: 1 Years Smoked: 5 Packs Per Year: 5 e-Cigarette/Vaping Use: Never Used Second Hand Smoke Exposure: No Use of substances other than those prescribed or required for medical reasons: No service: No Current occupational status: retired Current occupation: Retired RN Current occupational exposures/hazards: No Cognitive needs: No Hearing needs: No Vision needs: No Questionnaire Thrive Questionnaire Date Thrive assessed: 06/12/24 I am a: Patient What is your living situation today?: I have a steady place to live Within the past 12 months, did the food you bought not last and you didn't have the money to get more?: Never true Within the past 12 months, did you worry whether your food would run out before you got money to buy more?: Never true Do you have trouble paying for medicines?: No Do you have trouble getting transportation to medical appointments?: No Do you have trouble paying your heating and electricity bill?: No Do you have trouble taking care of your child, family member or friend?: No Do you have trouble with day-to-day activities such as bathing, preparing meals, shopping, managing finances, etc.?: No Are you currently unemployed and looking for a job?: No Are you interested in more education?: No Please select the resources that you would like help with: None Currently or been in a relationship where the following occur: No concerns reported THRIVE Score: 0 AUDIT C Alcohol Use Questionnaire (AUDIT-C) 1. How often do you have a drink containing alcohol?: Monthly or less 2. How many drinks containing alcohol do you have on a typical day when you are drinking?: 1 or 2 3. How often do you have six or more drinks on one occasion?: Never Total Score: 1 CYRIL-7 AMB Questionnaire CYRIL-7 Date CYRIL - 7 assessed: 01/10/23 Source: Developed by Drs. Giovanni Oneil, Chen Duron, Philippe Vazquez and colleagues, with an educational buddy from [employer]. Physical exam (Primary Care) Vital Signs: Last Vital Signs Temp 97.9 F 11/06/24 13:27 Pulse 71 11/06/24 13:27 Resp 16 11/06/24 13:27 BP 132/76 11/06/24 13:41 Pulse Ox 93 11/06/24 13:27 Oxygen Delivery Method Room Air 11/06/24 13:27 BMI result Body Mass Index 27.6 Tobacco/Smoking Status: Tobacco use Status Tobacco use date assessed 11/06/24 11/06/24 13:35 Patient Tobacco Use Status Former Tobacco user 11/06/24 13:42 e-Cigarette/Vaping Use Never Used 11/06/24 13:42 Thrive Assessment: Date of Thrive Assessment Date Thrive assessed 06/12/24 11/06/24 13:27 Currently or been in a relationship where the following occur: No concerns reported Coding Level of Care Code Est Pt Level 3 (65308) Diagnoses Essential hypertension I10 Low vitamin D level R79.89 Assessment & Plan Assessment & Plan (1) Essential hypertension: Code(s): I10 - Essential (primary) hypertension Category: Medical Plan: Blood?pressure?in?controlled?range?after?relaxation.??Goal?is?less?than?140/90 Continue?hydrochlorothiazide?as?prescribed Encouraged?low?salt/sodium?in?diet Encouraged?exercise (2) Low vitamin D level: Code(s): R79.89 - Other specified abnormal findings of blood chemistry Category: Medical Plan: Vitamin-D?level?now?in?normal?range?after?giving?supplement [place]?[address]?IU, 2?daily?dosing 2000?IU Can?recheck?with?pre?physical?labs?and?will?review?with?her?at?her?visit?his Orders: Orders Microalbumin, Random (w Creat) Today I10 - Essential (primary) hypertension TSH reflex Free T4 Today Z00.00 - Encounter for general adult medical examination without abnormal findings Vitamin D 25-OH Total Today E55.9 - Vitamin D deficiency, unspecified Comprehensive [place]. Panel Fast Today Z00.00 - Encounter for general adult medical examination without abnormal findings Complete Blood Count Auto Diff Today Z00.00 - Encounter for general adult medical examination without abnormal findings Lipid Panel Today Z00.00 - Encounter for general adult medical examination without abnormal findings UA CC w/rflx Micro + Cult Today Z00.00 - Encounter for general adult medical examination without abnormal findings Medications: New cholecalciferol (vitamin D3) 50 mcg PO DAILY 90 caps 3RF 90 days Discontinued cholecalciferol (vitamin D3) Discontinued Reason: Doctor's Order 1,250 mcg PO QWEEK 28 days 4 caps 1RF
[2024-11-06 13:27] VITALS: BP 144/84; PULSE 71; RESP 16; TEMP 36.6; O2SAT 93; BMI 27.6
[2024-11-06 13:41] VITALS: BP 132/76
--- OUTSIDE RECORDS SUMMARY | 2024-11-06 13:49 | XMS_ITS | Patient Health Record ---
Author Organization [facility] Address [address] [place] [id number] Care Team Providers Care Analysis Reporting Developer Name Role Phone Lu Post DO Primary Care Provider Pillo Rodriguez Jr Unavailable Allergies Allergen (clinical drug ingredient) Drug/Non Drug [...] Problem Status W/U Status Risk Notes Problem [id number] Hypertension (I10) Active confirmed Problem [id number] Ulcerative pancolitis with rectal bleeding (K51.011) Active confirmed Plan Of Treatment Future Test Test Name Order Date COLONOSCOPY 12/17/2012 Insurance Providers Payer Name Payer Address Payer Phone Subscriber Number Group Number Insured Name Patient Relationship to Insured Coverage Start Date Coverage End Date MED[place]ARE [place] [address] [place] [address] [id number] LITO SANTILLAN Self - patient is the insured MED[employer] ATT[employer] CLAIMS [address] [place] [address] [phone] [id number] LITO SANTILLAN Self - patient is the insured Medications Administered Medication Instructions Date of Administration Dosage Notes B-12 07/25/2021 1000 ug Medical (General) History Medical History History ICD Code hypertension Denies [place],DM,CVA,Lung disease,renal dise ase colitis, colonoscopy 12/23 pancolitis, up to date on colon cancer screening Arthritis seasonal allergies Surgical History Surgery Date(Month/Year) tonsillectomy
== END 2024-11-06 14:10 | disposition home or self-care (01) ==
LOC: HO.HMCFM 13:21
PROVIDERS: PCP Family Medicine; Visit Provider Family Medicine
DX: I10 Essential (primary) hypertension (principal); R79.89 Other specified abnormal findings of blood chemistry

== ENCOUNTER → 2024-11-06 13:20 | Outpatient (BNVA) | payer MEDICARE, SELFPAY | PROVIDERS: PCP Family Medicine; Visit Provider Family Medicine | DX: I10 Essential (primary) hypertension (principal); R79.89 Other specified abnormal findings of blood chemistry | CPT/HCPCS: 99212 ==

== ENCOUNTER 2024-12-08 09:31 | Outpatient (REF) | payer MEDICARE, SELFPAY ==
--- OUTSIDE RECORDS SUMMARY | 2024-12-08 10:04 | XMS_ITS | Clinical Summary ---
Author Organization [facility] Address [address] [place] [address] Care Team Providers Care Guzzler Builder Name Role Phone Unavailable Primary Care Provider [...] 78 01/12/2020 2:00 PM EDT Temperature 36.7 C (98 F) 01/12/2020 2:00 PM EDT Respiratory Rate 16 [...] Scan) 01/14/2022 01/15/2020, 07/11/2017 Influenza Vaccine (#1) 2025 01/23/2018, 2016 DTap / Tdap / Td [...]
--- OUTSIDE RECORDS SUMMARY | 2024-12-08 10:04 | XMS_ITS | Patient Health Record ---
Author Organization [facility] Address [address] [place] [id number] Care Team Providers Care Hand Etcher Helper Name Role Phone Lu Post DO Primary Care Provider Pillo Rodriguez Jr Unavailable Allergies Allergen (clinical drug ingredient) Drug/Non Drug Allergy documented on EMR Reaction Allergy Type Onset Date Status atorvastatin Lipitor Unknown Drug Allergy Acti ve Reason For Referral No Information Medications Medication SIG (Take, Route, Frequency, Duration) Notes Start Date End Date Status Gas Relief 80 MG 1 tablet after meals and at bedtime as needed Orally prn Active sulfaSALAzine 500 MG TAKE 2 TABLETS BY MOUTH TWICE A DAY for 90 Active Advil 200 MG 3 tablet with [...] Problem Status W/U Status Risk Notes Problem [id number] Hypertension (I10) Active confirmed Problem [id number] Ulcerative pancolitis with rectal bleeding (K51.011) Active confirmed Plan Of Treatment Future Test Test Name Order Date COLONOSCOPY 12/17/2012 Insurance Providers Payer Name Payer Address Payer Phone Subscriber Number Group Number Insured Name Patient Relationship to Insured Coverage Start Date Coverage End Date [place] [address] [place] [address] [id number] LITO SANTILLAN Self - patient is the insured MED[employer] ATTN CLAIMS [address] [place] [address] [phone] [id number] LITO SANTILLAN Self - patient is the insured Medications Administered Medication Instructions Date of Administration Dosage Notes B-12 07/25/2021 1000 ug Medical (General) History Medical History History ICD Code hypertension Denies [place],DM,CVA,Lung disease,renal dise ase colitis, colonoscopy 12/23 pancolitis, up to date on colon cancer screening Arthritis seasonal allergies Surgical History Surgery Date(Month/Year) tonsillectomy
[2024-12-08 11:16] LABS: MANUAL DIFF FLAG NO
[2024-12-08 11:29] LABS: Hematocrit 44.2 % (37.0-47.0); Hemoglobin 14.0 g/dl (12.0-16.0); Imm Gran Abs Auto 0.01 X10*3/uL (0.00-0.03); Imm Gran Pct Auto 0.3 % (0.0-0.4); Lymphocytes Absolute Auto 0.9 X10*3/uL (1.2-4.9); Mean Corpuscular HGB Conc 31.7 g/dl (31.0-35.0); Mean Corpuscular Hemoglobin 29.5 pg (27.0-33.0); Mean Corpuscular Volume 93.1 fL (80.0-98.0); NRBC Abs Auto 0.000 X10*3/uL (0.0-0.012); NRBC Pct Auto 0.0 /100WBC (0.0-0.2); Platelet Count 234 X10*3/uL (160-400); Red Blood Count 4.75 X10*6/uL (4.20-5.50); White Blood Count 3.9 X10*3/uL (4.8-10.8)
[2024-12-08 11:49] LABS: Alanine Aminotransferase 20 U/L (0-31); Albumin Level 4.5 g/dL (3.5-5.0); Alkaline Phosphatase 53 U/L (39-117); Anion Gap 14 (12-20); Aspartate Amino Transferase 32 U/L (5-31); Blood Urea Nitrogen 13 mg/dL (9-16); Calcium 9.4 mg/dL (8.4-10.2); Carbon Dioxide 28 mmol/L (22-29); Chloride 104 mmol/L (96-108); Cholesterol 233 mg/dL (<200); Estimated Glomerular Filt Rate > 60; HDL Cholesterol 78 mg/dL (>40); Potassium 3.7 mmol/L (3.3-5.1); Sodium 142 mmol/L (135-145); Total Protein 7.0 g/dL (6.5-8.0); Triglycerides 198 mg/dL (<150)
== END 2024-12-08 09:32 | disposition home or self-care (01) ==
LOC: HO.WFDLDS 09:31
PROVIDERS: Visit Provider Family Medicine
DX: Z00.00 Encounter for general adult medical examination without abnormal findings (principal); I10 Essential (primary) hypertension; E55.9 Vitamin D deficiency, unspecified
CPT/HCPCS: 36415; 80053; 80061; 82306; 84443; 85025

== ENCOUNTER 2024-12-11 15:42 | Outpatient (AMB) | payer MEDICARE, SELFPAY ==
--- OUTSIDE RECORDS SUMMARY | 2024-12-11 15:44 | XMS_ITS | Clinical Summary ---
Author Organization [facility] Address [address] [place] [address] Care Team Providers Care Refrigerated Cargo Clerk Name Role Phone Unavailable Primary Care Provider [...]
--- OUTSIDE RECORDS SUMMARY | 2024-12-11 15:44 | XMS_ITS | Patient Health Record ---
Author Organization [facility] Address [address] [place] [id number] Care Team Providers Care Volunteer Recruitment Coordinator Name Role Phone Lu Post DO Primary [...] Problem Status W/U Status Risk Notes Problem [id number] Hypertension (I10) Active confirmed Problem [id number] Ulcerative pancolitis with rectal bleeding (K51.011) Active confirmed Plan Of Treatment Future Test Test Name Order Date COLONOSCOPY 12/17/2012 Insurance Providers Payer Name Payer Address Payer Phone Subscriber Number Group Number Insured Name Patient Relationship to Insured Coverage Start Date Coverage End Date [place] [address] [place] [address] [id number] LITO SANTILLAN Self - patient is the insured MED[employer] ATTN CLAIMS [address] [place] [address] [id number] LITO SANTILLAN Self - patient is the insured Medications Administered Medication Instructions Date of Administration Dosage Notes B-12 07/25/2021 1000 ug Medical (General) History Medical History History ICD Code hypertension Denies [place],DM,CVA,Lung disease,renal dise ase colitis, colonoscopy 12/23 pancolitis, up to date on colon cancer screening Arthritis seasonal allergies Surgical History Surgery Date(Month/Year) tonsillectomy
--- NOTE | 2024-12-11 16:06 | MHC.PC.OV ---
Vital Signs 12/11/24 16:11 Height 5 ft 2 in Weight 151 lb BMI 27.6 BP 110/68 Blood Pressure Location Lt brachial Position Sitting Respiration 14 Pulse 55 Pulse Source Pulse Oximeter Temp 98.0 F Temp Source Oral Pulse Oximetry (%) 94 Oxygen Delivery Method Room Air Intake Visit Reasons: CPE with f/u labs and health maint Intake Note: patient is scheduled for cpe Senior Hr Manager Required: No Is last menstrual period known: No Post menopausal: Yes Patient : No Allergies Seasonal Allergies Allergy (Intermediate, Verified 12/11/24 16:09) sneezing atorvastatin (Lipitor) Adverse Reaction (Severe, Verified 12/11/24 16:09) myopathy Tobacco use date assessed: 11/06/24 Dental Screening Dental Screen Date: 11/06/24 HPI CPE with f/u labs and health maint HPI Details 84 y/o female presents for an extended exam with f/u labs and health maintenance. Labs drawn 12/08/24. Reviewed labs with pt. Fasting glucose 102. Elevated AST of 32. Triglycerides 198. TC 233. LDL 116. HDL 78. She is on pravastatin 5mg daily.. BP today 110/68, 55p. She is on hydrochlorothiazide 25mg daily. Reports some ear discomfort. Reports some unsteady gait. Has tried physical therapy but notes no one had contacted her. HPI Comments History of Present Illness Details Documentation assistance for Constantino Wise MD, was provided by Chas Li, Rn [facility] on 12/11/2024 at 4:28 PM EST. I, Dr. Wise, have read, observed, and verified documentation. [facility] Medical History Crohn disease Hypertension Lipoma of chest wall Surgical History History of tonsillectomy H/O adenoidectomy History of lipoma Family History (Updated 11/06/24 @ 13:30 by Larissa Mendieta CMA) Father Hodgkins lymphoma Mother COPD (chronic obstructive pulmonary disease) Daughter PSA (psoriatic arthritis) Paternal Grandfather No problems noted. Social History (Updated 11/06/24 @ 13:42 by Larissa Mendieta CMA) Housing: House Alcohol intake: never Patient Tobacco Use Status: Former Tobacco user Cigarette Packs Per Day: 1 Years Smoked: 5 e-Cigarette/Vaping Use: Never Used Second Hand Smoke Exposure: No service: No Current occupational status: retired Current occupation: Retired RN Current occupational exposures/hazards: No Cognitive needs: No Hearing needs: No Vision needs: No Questionnaire PHQ-9 Over the last 2 weeks, how often have you been bothered by any of the following problems? 1. Little interest or pleasure in doing things: not at all 2. Feeling down, depressed, or hopeless: not at all 3. Trouble falling or staying asleep, or sleeping too much: more than half the days 4. Feeling tired or having little energy: not at all 5. Poor appetite or overeating: not at all 6. Feeling bad about yourself - or that you are a failure or have let yourself or your family down: not at all 7. Trouble concentrating on things, such as reading the newspaper or watching television: not at all 8. Moving or speaking so slowly that other people could have noticed. Or the opposite - being so fidgety or restless that you have been moving around a lot more than usual: not at all 9. Thoughts that you would be better off or of hurting yourself in some way: not at all Total score: 2 Depression Screening Interpretation: Negative Depression Screening Done: Yes 17189 - PHQ-9 Billing: Yes Source: Developed by Drs. Giovanni Oneil, Chen Duron, Philippe Vazquez and colleagues, with an educational buddy from [employer] Thrive Questionnaire Date Thrive assessed: 06/12/24 I am a: Patient What is your living situation today?: I have a steady place to live Within the past 12 months, did the food you bought not last and you didn't have the money to get more?: Never true Within the past 12 months, did you worry whether your food would run out before you got money to buy more?: Never true Do you have trouble paying for medicines?: No Do you have trouble getting transportation to medical appointments?: No Do you have trouble paying your heating and electricity bill?: No Do you have trouble taking care of your child, family member or friend?: No Do you have trouble with day-to-day activities such as bathing, preparing meals, shopping, managing finances, etc.?: No Are you currently unemployed and looking for a job?: No Are you interested in more education?: No Please select the resources that you would like help with: None Currently or been in a relationship where the following occur: No concerns reported THRIVE Score: 0 CYRIL-7 AMB Questionnaire CYRIL-7 Date CYRIL - 7 assessed: 12/11/24 Feeling nervous, anxious, or on edge: 0 = Not at all Not being able to stop or control worryin = Not at all Worrying too much about different things: 0 = Not at all Trouble relaxin = Not at all Being so restless that it is hard to sit still: 0 = Not at all Becoming easily annoyed or irritable: 0 = Not at all Feeling afraid as if something awful might happen: 0 = Not at all Total CYRIL-7 score (0-4 normal; 5-9 mild; 10-14 moderate; 15-21 severe): 0 Source: Developed by Drs. Giovanni Oneil, Chen Duron, Philippe Vazquez and colleagues, with an educational buddy from [employer] CYRIL-7 Assessment Billing CYRIL-7 Assessment Tool: CYRIL-7 Assessment 40260 Review of Systems Const Denies chills, Denies fatigue, Denies fever(s), Denies headache(s) and Denies weakness Eyes Denies change in vision ENT Denies dizziness, Denies headache(s), Denies hearing loss, Denies nasal congestion, Denies sinus pain, Denies sinus pressure and Denies sore throat Card Denies chest pain, Denies lightheadedness, Denies dyspnea and Denies other (palpitations) Resp Denies cough, Denies dyspnea and Denies wheezing GI Denies abdominal pain, Denies melena, Denies hematochezia, Denies change in bowel habits, Denies dyspepsia and Denies nausea Denies hematuria and Denies dysuria Musc Denies abnormal gait, Denies myalgias, Denies arthralgias, Denies numbness and Denies tingling Skin/Breast Denies rash, Denies unusual bruising and Denies wounds Neuro Denies abnormal gait, Denies dizziness, Denies headache(s), Denies memory loss, Denies numbness, Denies Sensory deficit (Neuro), Denies tingling and Denies weakness Psych Denies anxiety, Denies depression and Denies memory loss Endo Denies cold intolerance, Denies fatigue, Denies heat intolerance, Denies polydipsia and Denies polyuria Michael/Lymph Denies easy bleeding and Denies easy bruising Aller/Immun Denies wheezing Physical exam (Primary Care) Vital Signs: Last Vital Signs Temp 98.0 F 12/11/24 16:11 Pulse 55 12/11/24 16:11 Resp 14 12/11/24 16:11 BP 110/68 12/11/24 16:11 Pulse Ox 94 12/11/24 16:11 Oxygen Delivery Method Room Air 12/11/24 16:11 BMI result Body Mass Index 27.6 Tobacco/Smoking Status: Tobacco use Status Tobacco use date assessed 11/06/24 12/11/24 16:13 Patient Tobacco Use Status Former Tobacco user 12/11/24 16:13 e-Cigarette/Vaping Use Never Used 12/11/24 16:13 PHQ-9: PHQ-9 Score PHQ-9: Total score 2 12/11/24 16:22 Depression Screening Interpretation: Negative Thrive Assessment: Date of Thrive Assessment Date Thrive assessed 06/12/24 12/11/24 16:13 Currently or been in a relationship where the following occur: No concerns reported Const General: no acute distress, well developed, alert and awake Nutritional Appearance: well nourished Orientation/consciousness: patient oriented x3 HENMT Head: Yes normocephalic and Yes atraumatic Ears: hearing grossly normal bilaterally and TM's normal bilaterally General nose exam: Normal external nose present and Normal nares present Mouth: Normal oral and palatal mucosa present and moist mucous membranes Teeth and gingiva: dentition normal Throat: Yes posterior oropharynx normal Eyes General: appearance normal, both eyes and all related structures Pupils: Equal, round and reactive pupils present and Pupil accommodation reflex normal EOM: EOMs intact bilaterally Neck Neck: Yes normal visual inspection, Yes no lymphadenopathy and Yes trachea midline Thyroid: Thyroid normal Carotids: no bruits Lymphatic: no lymphadenopathy noted Chest Chest palpation & inspection: normal inspection of the chest Resp Effort & Inspection: normal respiratory effort Auscultation: clear to auscultation bilaterally Cardio Rate: regular rate Rhythm: regular rhythm Heart sounds: S1 normal heart sound present, S2 normal heart sound present, no gallops, no murmurs and no rubs Bruits: no abdominal aortic bruits and no carotid bruits GI Palpation (GI): No Abdominal aortic bruit present, Soft to palpation, nontender, No hepatosplenomegaly present and No Rebound tenderness present Auscultation: normal bowel sounds General: Yes no CVA tenderness Back/Spine/Pelvis Back: no CVA tenderness Cervical Spine: cervical ROM normal and No Cervical spine tenderness Thoracic/Lumbar Spine: thoraco-lumbar ROM normal, No pain with thoraco-lumbar ROM, No thoracic spinal tenderness and No lumbar spinal tenderness Skin Lesions: no lesions Rashes: no rashes Trauma: no lacerations or abrasions Wounds: no wounds Nails: normal Neuro General: patient oriented x3 Cranial nerves: Yes Equal, round and reactive pupils present Cognition (Neuro): normal cognition Gait exam (Neuro): gait abnormal Motor exam (neuro): 5/5 motor strength present throughout Sensory Exam: No Sensory deficit (Neuro) Deep tendon reflexes (DTR's): Right patellar reflex intensity grade: 2+ and Left patellar reflex intensity grade: 2+ Extrem General: Yes normal to inspection and No edema Psych Appearance: grossly normal Affect: normal affect Attitude: cooperative Thought process: Normal thought process present Coding Level of Care Code Est Pt Level 4 (11536) Diagnoses Essential hypertension I10 Hyperlipidemia E78.5 Low vitamin D level R79.89 Elevated fasting blood sugar R73.01 Ear discomfort H92.09 Breast cancer screening by mammogram Z12.31 Age-related osteoporosis without current pathological fracture M81.0 Osteoporosis type: age-related Presence of current pathological fracture: without current pathological fracture Unsteady gait R26.81 At risk for falling Z91.81 Adult general medical exam Z00.00 Additional Codes CYRIL-7 Assessment Billing - CYRIL-7 Assessment Tool: CYRIL-7 Assessment 54724 ([id number]) PHQ-9 - 05618 - PHQ-9 Billing: Yes ([id number]) Assessment & Plan Assessment & Plan (1) Essential hypertension: Code(s): I10 - Essential (primary) hypertension Category: Medical Plan: Blood pressure is well controlled. Goal is less than 140/90 Continue current medications (2) Hyperlipidemia: Code(s): E78.5 - Hyperlipidemia, unspecified Category: Medical Plan: LDL cholesterol is above goal of less than 100 She is on a low-dose pravastatin Encouraged her to work at a diet lower in saturated fats and cholesterol Will recheck prior to next visit in a few months. Will adjust pravastatin if needed (3) Low vitamin D level: Code(s): R79.89 - Other specified abnormal findings of blood chemistry Category: Medical Plan: Vitamin-D level is within range (4) Elevated fasting blood sugar: Code(s): R73.01 - Impaired fasting glucose Category: Medical Plan: Mildly elevated fasting blood sugar. Last A1c few months ago was well within normal range Will continue to monitor Encouraged a diet lower in sugars and starches (5) Ear discomfort: Code(s): H92.09 - Otalgia, unspecified ear Category: Medical Plan: Patient has copious cerumen in canals Offered to irrigate but patient declines She can try Debrox drops (6) Breast cancer screening by mammogram: Code(s): Z12.31 - Encounter for screening mammogram for malignant neoplasm of breast Category: Medical Plan: Patient has upcoming mammogram (7) Osteoporosis: Code(s): M81.0 - Age-related osteoporosis without current pathological fracture Category: Medical Qualifiers: Osteoporosis type: age-related Presence of current pathological fracture: without current pathological fracture Qualified Code(s): M81.0 - Age-related osteoporosis without current pathological fracture Plan: Osteoporosis seen by bone density test last year Due for bone density testing in 2025 Up-to-date (8) Unsteady gait: Code(s): R26.81 - Unsteadiness on feet Category: Medical Plan: Get up and go test took 16 seconds Patient also has significant unsteadiness and listed to 1 side requiring examiner to help steady her Encouraged her to use her cane Will get physical therapy for strength and balance training. (9) At risk for falling: Code(s): Z91.81 - History of falling Category: Medical Plan: As above (10) Adult general medical exam: Code(s): Z00.00 - Encounter for general adult medical examination without abnormal findings Category: Medical Plan: 84-year-old female presents for an extended exam Orders: Orders PT Evaluation and Treatment Today M25.561 - Pain in right knee, M25.562 - Pain in left knee, R26.81 - Unsteadiness on feet, R29.898 - Other symptoms and signs involving the musculoskeletal system
[2024-12-11 16:11] VITALS: BP 110/68; PULSE 55; RESP 14; TEMP 36.7; O2SAT 94; BMI 27.6
== END 2024-12-11 16:37 | disposition home or self-care (01) ==
LOC: HO.HMCFM 15:42
PROVIDERS: PCP Family Medicine; Visit Provider Family Medicine
DX: I10 Essential (primary) hypertension (principal); E78.5 Hyperlipidemia, unspecified; R79.89 Other specified abnormal findings of blood chemistry; R73.01 Impaired fasting glucose; H92.09 Otalgia, unspecified ear; Z12.31 Encounter for screening mammogram for malignant neoplasm of breast; M81.0 Age-related osteoporosis without current pathological fracture; R26.81 Unsteadiness on feet; Z91.81 History of falling; Z00.00 Encounter for general adult medical examination without abnormal findings

== ENCOUNTER 2024-12-11 15:42 | Outpatient (REF) | payer MEDICARE, SELFPAY ==
[2024-12-11 17:55] LABS: Appearance Urine Cloudy; Glucose Urine UA Negative (Negative); PH 6.5 (5.0-9.0); Specific Gravity - Urine 1.025 (1.005-1.025); UMIC TRIGGER UACC YES
[2024-12-11 18:05] LABS: Microalbum/Creatinine Ratio Ur 22.8 ug/mg cr (<30)
[2024-12-11 18:07] LABS: UACC Culture Trigger YES
== END 2024-12-11 15:43 | disposition home or self-care (01) ==
LOC: HO.LNP 15:42
PROVIDERS: PCP Family Medicine; Visit Provider Family Medicine
DX: Z00.00 Encounter for general adult medical examination without abnormal findings (principal); I10 Essential (primary) hypertension; E78.5 Hyperlipidemia, unspecified; E55.9 Vitamin D deficiency, unspecified; R73.01 Impaired fasting glucose; H92.09 Otalgia, unspecified ear; M81.0 Age-related osteoporosis without current pathological fracture; R26.81 Unsteadiness on feet; Z79.899 Other long term (current) drug therapy; Z91.81 History of falling; Z13.31 Encounter for screening for depression; Z13.39 Encounter for screening examination for other mental health and behavioral disorders
CPT/HCPCS: 81001; 82043; 82570; 87086; 96127; 99212

== ENCOUNTER 2025-01-01 14:42 | Outpatient (REF) | payer MEDICARE, SELFPAY ==
--- OUTSIDE RECORDS SUMMARY | 2025-01-01 14:46 | XMS_ITS | Clinical Summary ---
Author Organization [facility] Address [address] [place] [address] Care Team Providers Care Hoop Punch And Coiler Operator Helper Name Role Phone Unavailable Primary Care Provider [...]
--- OUTSIDE RECORDS SUMMARY | 2025-01-01 14:46 | XMS_ITS | Patient Health Record ---
Author Organization [facility] Address [address] [place] [id number] Care Team Providers Care Auto Body Repairman Name Role Phone Lu Post DO Primary Care Provider Pillo Rodriguez Jr Unavailable [phone] Allergies Allergen (clinical drug ingredient) Drug/Non Drug [...] Problem Status W/U Status Risk Notes Problem [id number] Hypertension (I10) Active confirmed Problem [id number] Ulcerative pancolitis with rectal bleeding (K51.011) Active confirmed Plan Of Treatment Future Test Test Name Order Date COLONOSCOPY 12/17/2012 Insurance Providers Payer Name Payer Address Payer Phone Subscriber Number Group Number Insured Name Patient Relationship to Insured Coverage Start Date Coverage End Date MEDICARE [place] [address] [place] [address] [id number] LITO SANTILLAN Self - patient is the insured MED[employer] ATT[employer] CLAIMS [address] [place] [address] [phone] [id number] LITO SANTILLAN Self - patient is the insured Medications Administered Medication Instructions Date of Administration Dosage Notes B-12 07/25/2021 1000 ug Medical (General) History Medical History History ICD Code hypertension Denies AR,DM,CVA,Lung disease,renal dise ase colitis, colonoscopy 12/23 pancolitis, up to date on colon cancer screening Arthritis seasonal allergies Surgical History Surgery Date(Month/Year) tonsillectomy
== END 2025-01-01 14:43 | disposition home or self-care (01) ==
LOC: HO.MAMMO 14:42
PROVIDERS: PCP Family Medicine; Visit Provider Family Medicine
DX: Z13.89 Encounter for screening for other disorder (principal)

== ENCOUNTER 2025-03-16 10:54 | Outpatient (AMB) | payer MEDICARE, SELFPAY ==
--- NOTE | 2025-03-16 11:49 | MHC.PC.OV ---
Vital Signs 03/16/25 11:54 Height 5 ft 2 in Weight 147 lb 2 oz BMI 26.9 BP 122/78 Blood Pressure Location Rt brachial Position Sitting Respiration 15 Pulse 89 Pulse Source Pulse Oximeter Temp 97.7 F Temp Source Temporal Artery Scan Pulse Oximetry (%) 95 Oxygen Delivery Method Room Air Intake Visit Reasons: ed fu Intake Note: Petrona presents in the office today for a ED Follow up. Allergies Seasonal Allergies Allergy (Intermediate, Verified 03/16/25 11:50) sneezing atorvastatin (Lipitor) Adverse Reaction (Severe, Verified 03/16/25 11:50) myopathy Tobacco use date assessed: 03/16/25 Fall risk assessment: 1 Fall in past year Last assessed Fall Risk: 03/16/25 Dental Screening Dental Screen Date: 03/16/25 Did you have a dental visit in the last 12 months?: Yes Did you have a dental problem in the last 6 months where you did not have access to dental care?: No Was dental information given to patient?: Patient has dentist HPI ed fu HPI Details Patient went to emergency department at [facility] for a fall with impact to head but no loss of consciousness. Patient notes that she had not had much to eat or drink that day. CT scan of head and neck were negative. EKG was unremarkable. Labs were negative except for a UTI Patient was given cefpodoxime and IV hydration. She was sent out with a script for cefpodoxime which she says she has completed. No further falls. She is scheduled with physical therapy [facility] Medical History Crohn disease Hypertension Lipoma of chest wall Surgical History History of tonsillectomy H/O adenoidectomy History of lipoma Family History Father Hodgkins lymphoma Mother COPD (chronic obstructive pulmonary disease) Daughter PSA (psoriatic arthritis) Paternal Grandfather No problems noted. Social History (Updated 03/16/25 @ 11:54 by Ashia Dodd CMA) Housing: House Alcohol intake: never Patient Tobacco Use Status: Former Tobacco user Cigarette Packs Per Day: 1 Years Smoked: 5 Packs Per Year: 5 e-Cigarette/Vaping Use: Never Used Second Hand Smoke Exposure: No Use of substances other than those prescribed or required for medical reasons: No service: No Current occupational status: retired Current occupation: Retired RN Current occupational exposures/hazards: No Cognitive needs: No Hearing needs: No Vision needs: No Questionnaire Thrive Questionnaire Date Thrive assessed: 06/12/24 CYRIL-7 AMB Questionnaire CYRIL-7 Date CYRIL - 7 assessed: 12/11/24 Source: Developed by Drs. Giovanni Oneil, Chen Duron, Philippe Vazquez and colleagues, with an educational buddy from [employer]. Review of Systems Const Denies chills, Denies fatigue, Denies fever(s), Denies headache(s) and Denies weakness Eyes Details: Vision normal and visual field normal by confrontation ENT Denies dizziness and Denies headache(s) Card Denies chest pain, Denies lightheadedness, Denies dyspnea and Denies other (Palpitations) Resp Denies cough, Denies dyspnea, Denies wheezing and Denies other ( shortness of breath) Musc Denies numbness and Denies tingling Neuro Denies dizziness, Denies headache(s), Denies numbness, Denies tingling, Denies paresthesias and Denies weakness Psych Denies anxiety and Denies depression Endo Denies fatigue Aller/Immun Denies wheezing Physical exam (Primary Care) Vital Signs: Last Vital Signs Temp 97.7 F 03/16/25 11:54 Pulse 89 03/16/25 11:54 Resp 15 03/16/25 11:54 BP 122/78 03/16/25 11:54 Pulse Ox 95 03/16/25 11:54 Oxygen Delivery Method Room Air 03/16/25 11:54 BMI result Body Mass Index 26.9 Tobacco/Smoking Status: Tobacco use Status Tobacco use date assessed 03/16/25 03/16/25 11:57 Patient Tobacco Use Status Former Tobacco user 03/16/25 11:54 e-Cigarette/Vaping Use Never Used 03/16/25 11:54 Thrive Assessment: Date of Thrive Assessment Date Thrive assessed 06/12/24 03/16/25 11:52 Const General: no acute distress and well developed Nutritional Appearance: well nourished Orientation/consciousness: patient oriented x3 HENMT Head: Yes normocephalic and Yes atraumatic Eyes General: appearance normal, both eyes and all related structures Pupils: Equal, round and reactive pupils present EOM: EOMs intact bilaterally Resp Effort & Inspection: normal respiratory effort Auscultation: clear to auscultation bilaterally Cardio Rate: regular rate Rhythm: regular rhythm Heart sounds: S1 normal heart sound present, S2 normal heart sound present, no gallops, no murmurs and no rubs Neuro General: patient oriented x3 and gait normal Cranial nerves: Yes Equal, round and reactive pupils present Psych Affect: normal affect Coding Level of Care Code Est Pt Level 3 (77462) Diagnoses Mild dehydration E86.0 Unsteady gait R26.81 UTI (urinary tract infection) N39.0 At risk for falling Z91.81 Assessment & Plan Assessment & Plan (1) Mild dehydration: Code(s): E86.0 - Dehydration Category: Medical (2) Unsteady gait: Code(s): R26.81 - Unsteadiness on feet Category: Medical (3) UTI (urinary tract infection): Code(s): N39.0 - Urinary tract infection, site not specified Category: Medical (4) At risk for falling: Code(s): Z91.81 - History of falling Category: Medical Plan Follow-up for emergency department visit on February 21 2025 for fall and patient was found to have urinary tract infection. Head CT and CT of cervical spine were negative. Lab work unremarkable except for urinary tract infection. EKG negative for ACS Patient was given cefpodoxime and script was given for patient to continue this as an outpatient. Patient also notes that she had not eaten or had much to drink that day. She was also given IV hydration. Has been feeling well since. And she finished all her antibiotic. She has an appointment for physical therapy for strength and balance training. Currently feeling well. She is using her cane as recommended. Visual field check by confrontation was essentially normal. Encouraged her to contact her eye doctor for an appointment to ensure vision is good.
[2025-03-16 11:54] VITALS: BP 122/78; PULSE 89; RESP 15; TEMP 36.5; O2SAT 95; BMI 26.9
--- OUTSIDE RECORDS SUMMARY | 2025-03-16 13:10 | XMS_ITS | Clinical Summary ---
Author Organization [facility] Address [address] [place] [address] Care Team Providers Care Broomcorn Grader Name Role Phone Unavailable Primary Care Provider [...]
--- OUTSIDE RECORDS SUMMARY | 2025-03-16 13:10 | XMS_ITS | Patient Health Record ---
Author Organization [facility] Address [address] [place] [phone] Care Team Providers Care Escalator Operator Name Role Phone Lu Post DO Primary [...] TAKE 2 TABLETS BY MOUTH TWICE A DAY; Duration: 90 Active Advil 200 MG 3 tablet with food or milk as needed Orally BID Active hydroCHLOROthiazide 25 MG 1 tablet in th e morning Orally Once a day Active Imodium A-D 2 MG 1 tablet Orally prn Active predniSONE 10 MG 4 tablets Orally Once a day for 1 week then taper by 1 tablet weekly; Duration: 30 Active Hair Skin Nails - as directed Orally Active Pravastatin Sodium 10 MG 1/2 tablet Orally Once a day; Duration: 90 days Active sulfaSALAzine 500 MG 2 Orally BID; Duration: 30 day(s) This replaces the prevuious Sulfasalazine [...] Problem Status W/U Status Risk Notes Problem Hypertension (79363112) Hypertension (I10) Active confirmed Problem Chronic ulcerative pancolitis (254316492) Ulcerative pancolitis with rectal bleeding (K51.011) Active confirmed Plan Of Treatment Future Test Test Name Order Date COLONOSCOPY 12/17/2012 Insurance Providers Payer Name Payer Address Payer Phone Subscriber Number Group Number Insured Name Patient Relationship to Insured Coverage Start Date Coverage End Date MED[place]ARE OF [place] [address] [place] [address] [id number] LITO SANTILLAN Self - patient is the insured MED[employer] ATTN CLAIMS [address] [place] [address] [id number] LITO SANTILLAN Self - patient is the insured Medications Administered Medication Instructions Date of Administration Dosage Notes B-12 07/25/2021 1000 ug Medical (General) History Medical History History ICD Code hypertension Denies IA,DM,CVA,Lung disease,renal dise ase colitis, colonoscopy 12/23 pancolitis, up to date on colon cancer screening Arthritis seasonal allergies Surgical History Surgery Date(Month/Year) tonsillectomy
== END 2025-03-16 12:40 | disposition home or self-care (01) ==
LOC: HO.HMCFM 10:54
PROVIDERS: PCP Family Medicine; Visit Provider Family Medicine
DX: E86.0 Dehydration (principal); R26.81 Unsteadiness on feet; N39.0 Urinary tract infection, site not specified; Z91.81 History of falling

== ENCOUNTER → 2025-03-16 10:54 | Outpatient (BNVA) | payer MEDICARE, SELFPAY | PROVIDERS: PCP Family Medicine; Visit Provider Family Medicine | DX: E86.0 Dehydration (principal); R26.81 Unsteadiness on feet; N39.0 Urinary tract infection, site not specified; Z91.81 History of falling | CPT/HCPCS: 99212 ==